=== PATIENT | male | born 1950 | race African-American/Black ===

== ENCOUNTER 2017-11-19 19:37 | Emergency (ER) | payer MEDICARE, MEDICAID ==
[~2017-11-19] VITALS: Ht 172.7 cm; Wt 124.7 kg
[~2017-11-19 19:37] MED LIST: CARTIA XT120 MG ORAL; FLOMAX0.4 MG ORAL; METFORMIN HCL1000 M1 ORAL; NEXIUM40 MG ORAL
[2017-11-19 20:00] VITALS: BP 120/76
[2017-11-19] MEDS ORDERED: Isovue-300 100ml vial INJ PRN (20:15)
[2017-11-19 20:47] LABS: APPEARANCE,URINE CLEAR; BASOPHILS % (AUTO) 0.9 % (0.0-2.0); BILIRUBIN, URINE NEGATIVE (NEGATIVE); EOSINOPHILS % (AUTO) 3.1 % (0.0-3.0); GLUCOSE, URINE (UA) NEGATIVE (NEGATIVE); HEMATOCRIT 43.4 % (42.0-52.0); KETONES,URINE NEGATIVE (NEGATIVE); LEUKOCYTE ESTERASE ,URINE NEGATIVE (NEGATIVE); LYMPHOCYTES % (AUTO) 37.7 % (20.0-45.0); MEAN CORPUSCULAR VOLUME 78 FL (80-99); MONOCYTES % (AUTO) 6.5 % (1.0-10.0); NEUTROPHILS % (AUTO) 51.8 % (45.0-75.0); NITRITE,URINE NEGATIVE (NEGATIVE); PH,URINE 5 (4.5-8.0); PLATELET COUNT 246 K/UL (150-450); PROTEIN,URINE NEGATIVE (NEGATIVE); RED BLOOD COUNT 5.59 M/UL (4.70-6.10); RED CELL DISTRIBUTION WIDTH 14.6 % (11.6-14.8); UROBILINOGEN,URINE NORMAL MG/DL (0.0-1.0); WHITE BLOOD COUNT 6.8 K/UL (4.8-10.8)
[2017-11-19 20:49] LABS: COLOR,URINE YELLOW
[2017-11-19 20:55] LABS: ANION GAP 6 mmol/L (5-15); BLOOD UREA NITROGEN 13 mg/dL (7-18); CALCIUM 9.1 MG/DL (8.5-10.1); CARBON DIOXIDE 30 MMOL/L (21-32); CHLORIDE 100 MMOL/L (98-107); CREATININE 1.1 MG/DL (0.55-1.30); POTASSIUM 3.5 MMOL/L (3.5-5.1); SODIUM 136 MMOL/L (136-145)
[2017-11-19 20:59] LABS: ALANINE AMINOTRANSFERASE 52 U/L (12-78); ALBUMIN 3.8 G/DL (3.4-5.0); ALBUMIN/GLOBULIN RATIO 0.8 (1.0-2.7); ALKALINE PHOSPHATASE 56 U/L (46-116); ASPARTATE AMINO TRANSFERASE 35 U/L (15-37); BILIRUBIN,TOTAL 0.3 MG/DL (0.2-1.0)
[2017-11-19] MEDS ORDERED: Lidocaine 2% Visc 15ml soln ORAL ONE (21:30)
--- NOTE | 2017-11-19 21:53 | Emergency Room Report ---
History of Present Illness General Chief Complaint: Abdominal Pain Source: Patient Present Illness HPI This patient states that he has had worsening abdominal pain over the past few days. He states he is also been burping a lot. He has a sour taste in the back of his throat. He has a burning sensation in his mid abdomen. He also has had difficulty having bowel movements. He is nauseated but denies vomiting. He denies dysuria or hematuria. He denies fever or chills. He denies chest pain or shortness of breath. He has no other complaints. Allergies: Coded Allergies: No Known Allergies (Unverified , 11/15/15) Patient History Past Medical History: see triage record, DM, HTN, GERD Social History: Denies: smoking, alcohol use, drug use Reviewed Nursing Documentation: PMH: Agreed; PSxH: Agreed Nursing Documentation-PMH Hx Hypertension: Yes Hx Diabetes: Yes Hx Gastrointestinal Problems: Yes - GERD Review of Systems All Other Systems: negative except mentioned in HPI Physical Exam Vital Signs Date Time Temp Pulse Resp B/P (MAP) Pulse Ox O2 Delivery O2 Flow Rate FiO2 11/19/17 19:53 98.9 98 18 112/71 98 Room Air 99.0 Sp02 EP Interpretation: reviewed, normal General Appearance: no apparent distress, alert, GCS 15, non-toxic, obese Head: normocephalic, atraumatic Eyes: bilateral eye normal inspection, bilateral eye PERRL ENT: hearing grossly normal, normal pharynx, no angioedema, normal voice Neck: full range of motion, supple/symm/no masses Respiratory: chest non-tender, lungs clear, normal breath sounds, no respiratory distress, no retraction, no accessory muscle use, speaking full sentences Cardiovascular #1: regular rate, rhythm, no edema Gastrointestinal: normal bowel sounds, soft, non-distended, no guarding, no rebound, tenderness - TTP in the epigastrium and mid abdomen Rectal: deferred Musculoskeletal: back normal, gait/station normal, normal range of motion, non- tender Neurologic: alert, oriented x3, responsive, motor strength/tone normal, sensory intact, speech normal Psychiatric: judgement/insight normal, memory normal, mood/affect normal, no suicidal/homicidal ideation Skin: normal color, no rash, warm/dry, well hydrated Medical Decision Making Diagnostic Impression: Primary Impression: GERD (gastroesophageal reflux disease) Additional Impression: Abdominal pain ER Course This patient presents with abdominal pain. I suspect the patient has GERD and constipation. However, the patient is tender to palpation on exam. Ultrasound of the right upper quadrant was unremarkable. Specifically there is no evidence of cholelithiasis or cholecystitis. Laboratory workup to include CBC, CMP and urinalysis are unremarkable. The patient is awaiting CT of the abdomen and pelvis. Anticipate that if the CT is negative that this patient can be treated for gastritis and constipation and be discharged home. The patient is turned over to Dr. Haynes. Laboratory Tests Test 11/19/17 20:08 White Blood Count 6.8 K/UL (4.8-10.8) Red Blood Count 5.59 M/UL (4.70-6.10) Hemoglobin 14.0 G/DL (14.2-18.0) L Hematocrit 43.4 % (42.0-52.0) Mean Corpuscular Volume 78 FL (80-99) L Mean Corpuscular Hemoglobin 25.1 PG (27.0-31.0) L Mean Corpuscular Hemoglobin Concent 32.3 G/DL (32.0-36.0) Red Cell Distribution Width 14.6 % (11.6-14.8) Platelet Count 246 K/UL (150-450) Mean Platelet Volume 6.4 FL (6.5-10.1) L Neutrophils (%) (Auto) 51.8 % (45.0-75.0) Lymphocytes (%) (Auto) 37.7 % (20.0-45.0) Monocytes (%) (Auto) 6.5 % (1.0-10.0) Eosinophils (%) (Auto) 3.1 % (0.0-3.0) H Basophils (%) (Auto) 0.9 % (0.0-2.0) Urine Color Yellow Urine Appearance Clear Urine pH 5 (4.5-8.0) Urine Specific [place] 1.020 (1.005-1.035) Urine Protein Negative (NEGATIVE) Urine Glucose (UA) Negative (NEGATIVE) Urine Ketones Negative (NEGATIVE) Urine Occult Blood Negative (NEGATIVE) Urine Nitrite Negative (NEGATIVE) Urine Bilirubin Negative (NEGATIVE) Urine Urobilinogen Normal MG/DL (0.0-1.0) Urine Leukocyte Esterase Negative (NEGATIVE) Sodium Level 136 MMOL/L (136-145) Potassium Level 3.5 MMOL/L (3.5-5.1) Chloride Level 100 MMOL/L (98-107) Carbon Dioxide Level 30 MMOL/L (21-32) Anion Gap 6 mmol/L (5-15) Blood Urea Nitrogen 13 mg/dL (7-18) Creatinine 1.1 MG/DL (0.55-1.30) Estimate Glomerular Filtration Rate > 60 mL/min (>60) Glucose Level 84 MG/DL (74-106) Calcium Level 9.1 MG/DL (8.5-10.1) Total Bilirubin 0.3 MG/DL (0.2-1.0) Aspartate Amino Transferase (AST) 35 U/L (15-37) Alanine Aminotransferase (ALT) 52 U/L (12-78) Alkaline Phosphatase 56 U/L (46-116) Troponin I 0.000 ng/mL (0.000-0.056) Total Protein 8.6 G/DL (6.4-8.2) H Albumin 3.8 G/DL (3.4-5.0) Globulin 4.8 g/dL Albumin/Globulin Ratio 0.8 (1.0-2.7) L Lipase 171 U/L (73-393) CT/MRI/US Diagnostic Results CT/MRI/US Diagnostic Results : Imaging Test Ordered: US RUQ Impression No acute findings. See official report. CT abd/pelvis: Impression: No acute process Broad-based umbilical hernia, no evidence of strangulation or obstruction Prominent prostate Diverticulosis. No evidence of diverticulitis Other findings as noted, including lumbar spondylosis, evidence of prior L4 and L5 laminectomies, right renal cyst Last Vital Signs Date Time Temp Pulse Resp B/P (MAP) Pulse Ox O2 Delivery O2 Flow Rate FiO2 11/19/17 20:00 98.5 75 18 120/76 98 Room Air 98.5 Disposition: HOME, SELF-CARE Condition: Improved Scripts Polyethylene Glycol 3350* (MIRALAX*) 17 Gm Powd.pack 17 GM ORAL DAILY for 30 Days, #30 PACKET Prov: Dipti Clark. DO 11/19/17 Docusate Sodium* (COLACE*) 100 Mg Capsule 100 MG ORAL DAILY, #30 CAP Prov: Dipti Clark. DO 11/19/17 Mag Hydrox/Al Hydrox/Simeth (MAALOX MAXIMUM STRENGTH SUSP) 355 Ml Oral.susp 10 ML PO Q6HR, #355 ML Prov: Dipti Clark DO 11/19/17 Simethicone* (SIMETHICONE*) 80 Mg Tab.chew 80 MG ORAL Q8H PRN for GAS PAIN, #20 TAB 0 Refills Prov: Dipti Clark DO 11/19/17 Referrals: [facility],REFERRING (PCP) Dipti Clark DO Nov 19, 2017 21:53
[2017-11-19] MEDS ORDERED: MIRALAX17 G2 ORAL (21:55)
[2017-11-19] MEDS ORDERED: SIMETHICONE80 MG ORAL (21:55)
[2017-11-19] MEDS ORDERED: MAALOX MAXIMUM355 M1 PO (21:55)
[2017-11-19] MEDS ORDERED: COLACE100 MG ORAL (21:55)
[2017-11-19 22:50] VITALS: BP 122/63
[2017-11-19 22:52] VITALS: BP 122/63
--- NOTE | 2017-11-20 09:09 | Diagnostic Imaging Report ---
Indication: Abdominal pain Technique: Mendoza-scale and duplex images of the upper abdomen were obtained Comparison: none Findings: Exam is limited due to patient body habitus Gallbladder is unremarkable, without stones, wall thickening, nor pericholecystic fluid. Sonographic Doe's sign is negative. Common bile duct measures 3 mm in diameter. No intrahepatic biliary ductal dilatation. Liver demonstrates normal echogenicity, no focal abnormality. Portal vein and hepatic veins are patent. Pancreas is incompletely visualized due to overlying bowel gas, visualized portions are unremarkable. Spleen is unremarkable. Left kidney measures 11.5 cm in length. Right kidney measures 11 cm length. Both kidneys demonstrate normal echogenicity. There is no hydronephrosis. Right kidney demonstrates a 28 mm cyst. Abdominal aorta is obscured by bowel gas . Impression: Limited exam, as described. Note nonvisualization of the abdominal aorta, suboptimal visualization of the pancreas Negative for gallstones or dilated ducts Incidental finding right renal cyst
--- NOTE | 2017-11-20 09:24 | Diagnostic Imaging Report ---
Clinical Indication: Abdominal pain x2 days Technique: No oral contrast utilized, per emergency room physician request IV administration nonionic contrast. Venous phase spiral acquisition obtained through the abdomen and pelvis. Multiplanar reconstructions were generated. Total dose length product 1095.6 mGycm. CTDIvol(s) 19.75 mGy. Dose reduction achieved using automated exposure control Comparison: none Findings: Normal appendix. There is colonic diverticulosis. No evidence of diverticulitis. No small bowel distention. There is a broad-based umbilical hernia contains bowel but there is no evidence of obstruction or strangulation. The distal esophagus, stomach, duodenum are unremarkable. No free or loculated intraperitoneal air or fluid is evident. The liver, gallbladder,, bile ducts, pancreas, spleen, adrenals, left kidney are all unremarkable. The right kidney demonstrates a 2.6 cm interpolar region cyst. No mesenteric or retroperitoneal mass or adenopathy. No pelvic mass or adenopathy. Prostate is slightly prominent. The included lung bases are clear. The bones demonstrate degenerative spondylosis changes. There is evidence of prior L4 and L5 laminectomies. There is bilateral L5 spondylolysis. No evidence of spondylolisthesis Impression: No acute process Broad-based umbilical hernia, no evidence of strangulation or obstruction Prominent prostate Diverticulosis. No evidence of diverticulitis Other findings as noted, including lumbar spondylosis, evidence of prior L4 and L5 laminectomies, right renal cyst This agrees with the preliminary interpretation provided overnight by [facility] teleradiology service. The CT scanner at [facility] is accredited by the [employer] and the scans are performed using protocols designed to limit radiation exposure to as low as reasonably achievable to attain images of sufficient resolution adequate for diagnostic evaluation.
== END 2017-11-19 22:55 | disposition home or self-care (01) ==
LOC: EMR 20:30
DX: K21.9 Gastro-esophageal reflux disease without esophagitis (principal); I10 Essential (primary) hypertension; E11.9 Type 2 diabetes mellitus without complications
CPT/HCPCS: 36415; 74177; 76700; 80053; 81003; 83690; 84484; 85025; 99285; Q9967; S0028

== ENCOUNTER 2017-12-01 08:50 | Emergency (ER) | payer MEDICARE, MEDICAID ==
[~2017-12-01] VITALS: Ht 172.7 cm; Wt 126.1 kg
[~2017-12-01 08:50] MED LIST changes: +COLACE100 MG ORAL; +MAALOX MAXIMUM355 M1 PO; +MIRALAX17 G2 ORAL; +SIMETHICONE80 MG ORAL
[2017-12-01 09:01] VITALS: BP 102/61
[2017-12-01] MEDS ORDERED: Lidocaine 2% Visc 15ml soln ORAL ONE (09:15)
--- NOTE | 2017-12-01 09:30 | Emergency Room Report ---
History of Present Illness General Chief Complaint: Sore Throat Source: Patient, Medical Record Present Illness HPI This patient states that he was seen previously by myself with the same symptoms. He states he has a burning sensation in his chest and has a lot of burping. He states that when he was seen here last time he was given the wrong prescription stating the prescriptions he was given was not his name. So he did not and up starting on the medications he was prescribed. He has exact same symptoms. He denies new symptoms. He has no other complaints. Allergies: Coded Allergies: No Known Allergies (Unverified , 11/15/15) Patient History Past Medical History: see triage record, DM, HTN, GERD Social History: Denies: smoking, alcohol use, drug use Reviewed Nursing Documentation: PMH: Agreed; PSxH: Agreed Nursing Documentation-PMH Past Medical History: No History, Except For Hx Hypertension: Yes Hx Diabetes: Yes Hx Gastrointestinal Problems: Yes - GERD Review of Systems All Other Systems: negative except mentioned in HPI Physical Exam Vital Signs Date Time Temp Pulse Resp B/P (MAP) Pulse Ox O2 Delivery O2 Flow Rate FiO2 12/01/17 08:53 98.5 105 18 102/61 95 Room Air 98.4 Sp02 EP Interpretation: reviewed, normal General Appearance: no apparent distress, alert, GCS 15, non-toxic Head: normocephalic, atraumatic Eyes: bilateral eye normal inspection, bilateral eye PERRL ENT: hearing grossly normal, normal pharynx, no angioedema, normal voice Neck: full range of motion, supple/symm/no masses Respiratory: chest non-tender, lungs clear, normal breath sounds, no respiratory distress, no retraction, no accessory muscle use, speaking full sentences Cardiovascular #1: regular rate, rhythm, no edema Gastrointestinal: normal bowel sounds, non tender, soft, non-distended, no guarding, no rebound Rectal: deferred Musculoskeletal: back normal, gait/station normal, normal range of motion, non- tender Neurologic: alert, oriented x3, responsive, motor strength/tone normal, sensory intact, speech normal Psychiatric: judgement/insight normal, memory normal, mood/affect normal, no suicidal/homicidal ideation Skin: normal color, no rash, warm/dry, well hydrated Lymphatic: no adenopathy Medical Decision Making Diagnostic Impression: Primary Impression: GERD (gastroesophageal reflux disease) Additional Impression: Esophagitis ER Course This patient has a clinical history and examination consistent with GERD and esophagitis. He had a full workup last week to include a right upper quadrant ultrasound, extensive laboratory workup to include CBC, CMP, cardiac enzymes and underwent a CT abdomen and pelvis for the same symptoms. This workup was unremarkable. I do not feel it is necessary to repeat any of these tests. The patient has not been able to take the prescribed medications and so continues to have symptoms. Unfortunately he failed to follow-up with his primary care physician despite being instructed to do so. I will re-prescribe him the same acid reflux medications as previously prescribed and instructed him to follow closely with his primary care physician as he may need a consultation to a tamale machine feeder. The patient indicated understanding and intention to do so. Last Vital Signs Date Time Temp Pulse Resp B/P (MAP) Pulse Ox O2 Delivery O2 Flow Rate FiO2 12/01/17 09:01 98.4 88 18 102/61 95 Room Air 98.4 Status: improved Disposition: HOME, SELF-CARE Condition: Improved Dipti Clark DO Dec 01, 2017 09:30
[2017-12-01] MEDS ORDERED: PEPCID AC20 M2 PO (10:02)
[2017-12-01] MEDS ORDERED: NEXIUM40 MG ORAL (10:02)
[2017-12-01] MEDS ORDERED: MAALOX MAXIMUM355 M1 PO (10:02)
[2017-12-01 10:11] VITALS: BP 102/61
== END 2017-12-01 10:13 | disposition home or self-care (01) ==
LOC: EMR 09:47
DX: K21.9 Gastro-esophageal reflux disease without esophagitis (principal); K20.9 Esophagitis, unspecified; E11.9 Type 2 diabetes mellitus without complications; I10 Essential (primary) hypertension
CPT/HCPCS: 99283

== ENCOUNTER 2017-12-22 18:08 | Emergency (ER) | payer MEDICARE, MEDICAID ==
[~2017-12-22] VITALS: Ht 172.7 cm; Wt 127.0 kg
[~2017-12-22 18:08] MED LIST changes: +PEPCID AC20 M2 PO
[2017-12-22 19:39] VITALS: BP 133/84
[2017-12-22 19:46] LABS: APPEARANCE,URINE CLEAR; BASOPHILS % (AUTO) 1.1 % (0.0-2.0); BILIRUBIN, URINE NEGATIVE (NEGATIVE); EOSINOPHILS % (AUTO) 2.8 % (0.0-3.0); GLUCOSE, URINE (UA) NEGATIVE (NEGATIVE); HEMATOCRIT 41.5 % (42.0-52.0); HEMOGLOBIN 14.4 G/DL (14.2-18.0); KETONES,URINE 1+ (NEGATIVE); LEUKOCYTE ESTERASE ,URINE 1+ (NEGATIVE); LYMPHOCYTES % (AUTO) 34.7 % (20.0-45.0); MEAN CORPUSCULAR VOLUME 76 FL (80-99); MONOCYTES % (AUTO) 9.2 % (1.0-10.0); NEUTROPHILS % (AUTO) 52.1 % (45.0-75.0); NITRITE,URINE NEGATIVE (NEGATIVE); PH,URINE 5 (4.5-8.0); PLATELET COUNT 250 K/UL (150-450); PROTEIN,URINE 1+ (NEGATIVE); RED BLOOD COUNT 5.47 M/UL (4.70-6.10); RED CELL DISTRIBUTION WIDTH 14.5 % (11.6-14.8); UROBILINOGEN,URINE 1 MG/DL (0.0-1.0); WHITE BLOOD COUNT 8.2 K/UL (4.8-10.8)
[2017-12-22 19:53] LABS: COLOR,URINE YELLOW
[2017-12-22 19:56] LABS: ANION GAP 10 mmol/L (5-15); BLOOD UREA NITROGEN 15 mg/dL (7-18); CALCIUM 9.8 MG/DL (8.5-10.1); CARBON DIOXIDE 28 MMOL/L (21-32); CHLORIDE 105 MMOL/L (98-107); CREATININE 1.1 MG/DL (0.55-1.30); POTASSIUM 3.6 MMOL/L (3.5-5.1); SODIUM 143 MMOL/L (136-145)
[2017-12-22 20:01] LABS: ALANINE AMINOTRANSFERASE 41 U/L (12-78); ALBUMIN 3.7 G/DL (3.4-5.0); ALBUMIN/GLOBULIN RATIO 0.8 (1.0-2.7); ALKALINE PHOSPHATASE 58 U/L (46-116); ASPARTATE AMINO TRANSFERASE 29 U/L (15-37); BILIRUBIN,TOTAL 0.3 MG/DL (0.2-1.0)
--- NOTE | 2017-12-22 20:34 | Emergency Room Report ---
History of Present Illness General Chief Complaint: Upper Respiratory Illness Source: Patient, Medical Record Present Illness HPI The patient states that he has had cough and congestion with clear to white sputum production over the past 2 days. He states he's also had some acid reflux and burning sensation for the same amount of time. He has a history of acid reflux. He denies fever or chills. He denies nausea or vomiting. He denies abdominal pain. He denies shortness of breath. He has no other complaints. Allergies: Coded Allergies: No Known Allergies (Unverified , 11/15/15) Patient History Past Medical History: see triage record, DM, HTN, CAD, GERD Social History: Denies: smoking, alcohol use, drug use Reviewed Nursing Documentation: PMH: Agreed; PSxH: Agreed Nursing Documentation-PMH Past Medical History: No History, Except For Hx Hypertension: Yes Hx COPD: Yes Hx Diabetes: Yes Hx Gastrointestinal Problems: Yes - GERD Review of Systems All Other Systems: negative except mentioned in HPI Physical Exam Vital Signs Date Time Temp Pulse Resp B/P (MAP) Pulse Ox O2 Delivery O2 Flow Rate FiO2 12/22/17 18:15 98.5 105 18 134/79 95 Room Air 98.4 Sp02 EP Interpretation: reviewed, normal General Appearance: no apparent distress, alert, GCS 15, non-toxic Head: normocephalic, atraumatic Eyes: bilateral eye normal inspection, bilateral eye PERRL ENT: hearing grossly normal, normal pharynx, no angioedema, normal voice Neck: full range of motion, supple/symm/no masses Respiratory: chest non-tender, lungs clear, normal breath sounds, no respiratory distress, no retraction, no accessory muscle use, speaking full sentences Cardiovascular #1: regular rate, rhythm, no edema Gastrointestinal: normal bowel sounds, non tender, soft, non-distended, no guarding, no rebound Rectal: deferred Musculoskeletal: back normal, gait/station normal, normal range of motion, non- tender Neurologic: alert, oriented x3, responsive, motor strength/tone normal, sensory intact, speech normal Psychiatric: judgement/insight normal, memory normal, mood/affect normal, no suicidal/homicidal ideation Skin: normal color, no rash, warm/dry, well hydrated Medical Decision Making Diagnostic Impression: Primary Impression: Upper respiratory infection ER Course This patient has a clinical presentation with upper respiratory tract infection. The evaluation was very reassuring with a normal lung exam, no respiratory distress, normal pulse oximetry. The patient's chest x-ray is unremarkable without any obvious pneumonia. Comparison chest x-ray shows no significant change. The patient also underwent EKG as a precaution and EKG is unchanged from a comparison on 11/16/2015. Given the patient's age and he has having a significant amount of sputum production, I will treat this patient with azithromycin for atypical pneumonia. He is not wheezing on exam and there is no evidence of congestive heart failure. Laboratory workup is reassuring. No emergency medical condition was identified. Patient is given close return precautions and follow-up instructions. Laboratory Tests Test 12/22/17 19:10 White Blood Count 8.2 K/UL (4.8-10.8) Red Blood Count 5.47 M/UL (4.70-6.10) Hemoglobin 14.4 G/DL (14.2-18.0) Hematocrit 41.5 % (42.0-52.0) L Mean Corpuscular Volume 76 FL (80-99) L Mean Corpuscular Hemoglobin 26.3 PG (27.0-31.0) L Mean Corpuscular Hemoglobin Concent 34.6 G/DL (32.0-36.0) Red Cell Distribution Width 14.5 % (11.6-14.8) Platelet Count 250 K/UL (150-450) Mean Platelet Volume 6.0 FL (6.5-10.1) L Neutrophils (%) (Auto) 52.1 % (45.0-75.0) Lymphocytes (%) (Auto) 34.7 % (20.0-45.0) Monocytes (%) (Auto) 9.2 % (1.0-10.0) Eosinophils (%) (Auto) 2.8 % (0.0-3.0) Basophils (%) (Auto) 1.1 % (0.0-2.0) Urine Color Yellow Urine Appearance Clear Urine pH 5 (4.5-8.0) Urine Specific [place] 1.015 (1.005-1.035) Urine Protein 1+ (NEGATIVE) H Urine Glucose (UA) Negative (NEGATIVE) Urine Ketones 1+ (NEGATIVE) H Urine Blood Negative (NEGATIVE) Urine Nitrite Negative (NEGATIVE) Urine Bilirubin Negative (NEGATIVE) Urine Urobilinogen 1 MG/DL (0.0-1.0) H Urine Leukocyte Esterase 1+ (NEGATIVE) H Urine RBC 0-2 /HPF (0 - 0) H Urine WBC 2-4 /HPF (0 - 0) Urine Squamous Epithelial Cells None /LPF (NONE/OCC) Urine Bacteria Occasional /HPF (NONE) Urine Mucus Few /LPF (NONE/OCC) H Sodium Level 143 MMOL/L (136-145) Potassium Level 3.6 MMOL/L (3.5-5.1) Chloride Level 105 MMOL/L (98-107) Carbon Dioxide Level 28 MMOL/L (21-32) Anion Gap 10 mmol/L (5-15) Blood Urea Nitrogen 15 mg/dL (7-18) Creatinine 1.1 MG/DL (0.55-1.30) Estimate Glomerular Filtration Rate > 60 mL/min (>60) Glucose Level 89 MG/DL (74-106) Calcium Level 9.8 MG/DL (8.5-10.1) Total Bilirubin 0.3 MG/DL (0.2-1.0) Aspartate Amino Transferase (AST) 29 U/L (15-37) Alanine Aminotransferase (ALT) 41 U/L (12-78) Alkaline Phosphatase 58 U/L (46-116) Troponin I 0.004 ng/mL (0.000-0.056) Total Protein 8.2 G/DL (6.4-8.2) Albumin 3.7 G/DL (3.4-5.0) Globulin 4.5 g/dL Albumin/Globulin Ratio 0.8 (1.0-2.7) L EKG Diagnostic Results Rate: normal Rhythm: NSR ST Segments: no acute changes Other Impression LAFB, LVH. Unchanged from comparison on 11/16/15 Rhythm Strip Diag. Results EP Interpretation: yes Rate: 90's Rhythm: NSR, no PVC's, no ectopy Chest X-Ray Diagnostic Results Chest X-Ray Diagnostic Results : Chest X-Ray Ordered: Yes # of Views/Limited/Complete: 1 View Indication: Other - cough Interpretation: no consolidation, no effusion, no pneumothorax, no acute cardiopulmonary disease Impression: No acute disease Electronically Signed by: Carlos Last Vital Signs Date Time Temp Pulse Resp B/P (MAP) Pulse Ox O2 Delivery O2 Flow Rate FiO2 12/22/17 19:39 89 23 133/84 98 Room Air 12/22/17 18:15 98.5 98.4 Status: improved Disposition: HOME, SELF-CARE Condition: Improved Patient Instructions: Upper Respiratory Infection, Adult Dipti Clark DO Dec 22, 2017 20:34
[2017-12-22] MEDS ORDERED: ZITHROMAX250 MG ORAL (20:36)
[2017-12-22] MEDS ORDERED: ROBITUSSIN NIG237 ML PO (20:36)
[2017-12-22 20:46] VITALS: BP 133/84
--- NOTE | 2017-12-23 11:10 | Diagnostic Imaging Report ---
Indication: Cough Comparison: 11/15/2015 A single view chest radiograph was obtained. Findings: Exam limited by rotation. Cardiomediastinal appearance is within normal limits for age. Pulmonary vascularity is appropriate. The diaphragmatic contour is smooth and costophrenic angles are sharp. No pleural effusions are identified. The bones are unremarkable. Impression: No acute findings
--- NOTE | 2017-12-23 16:45 | Cardiology Report ---
APPROVED REPORT EKG Measurement Heart [id number] Normal sinus rhythm Pulmonary disease pattern Left anterior fascicular block Left ventricular hypertrophy with QRS widening Cannot rule out Septal infarct, age undetermined T wave abnormality, consider lateral ischemia Abnormal ECG
== END 2017-12-22 20:50 | disposition home or self-care (01) ==
LOC: EMR 18:35
DX: J06.9 Acute upper respiratory infection, unspecified (principal); E11.9 Type 2 diabetes mellitus without complications; I10 Essential (primary) hypertension; J44.9 Chronic obstructive pulmonary disease, unspecified; K21.9 Gastro-esophageal reflux disease without esophagitis
CPT/HCPCS: 36415; 71045; 80053; 81003; 84484; 85025; 87040; 93005; 96360; 99284

== ENCOUNTER 2018-01-12 22:05 | Emergency (ER) | payer MEDICARE, MEDICAID ==
[~2018-01-12] VITALS: Ht 172.7 cm; Wt 132.4 kg
[~2018-01-12 22:05] MED LIST changes: +ROBITUSSIN NIG237 ML PO; +ZITHROMAX250 MG ORAL
[2018-01-12] MEDS ORDERED: Silver Nitrate Stick TOPIC ONE ×2 (22:46→23:00)
[2018-01-12 23:01] VITALS: BP 124/71
[2018-01-12] MEDS ORDERED: NORVASC10 MG ORAL (23:27)
--- NOTE | 2018-01-12 23:28 | Emergency Room Report ---
History of Present Illness General Chief Complaint: Nosebleed Source: Patient Present Illness HPI Is a 67-year-old male with a history of diabetes and reflux. He said he had a history of high blood pressure and the past but not taking medication. He presents with chief complaint of nosebleed has been on off for last 3 days. Mostly right side. No nausea no vomiting. Nocamping. Does have a cough. Complaining of right back pain from coughing. No fever or chills. No runny nose but no congestion. No other complaint. Allergies: Coded Allergies: No Known Allergies (Unverified , 11/15/15) Patient History Past Medical History: see triage record, old chart reviewed Past Surgical History: other Pertinent Family History: none Social History: Denies: smoking Immunizations: other Reviewed Nursing Documentation: PMH: Agreed; PSxH: Agreed Nursing Documentation-PMH Hx Hypertension: Yes Hx COPD: Yes Hx Diabetes: Yes Hx Gastrointestinal Problems: Yes - GERD Review of Systems Eye: Denies: eye pain, blurred vision ENT: Reports: nose pain - and bleeding; Denies: ear pain, nose congestion, throat swelling Respiratory: Denies: cough, shortness of breath Cardiovascular: Denies: chest pain, palpitations Gastrointestinal: Denies: abdominal pain, diarrhea, nausea, vomiting Musculoskeletal: Denies: back pain, joint pain Skin: Denies: rash Neurological: Denies: headache, numbness Endocrine: Denies: increased thirst, increased urine Hematologic/Lymphatic: Denies: easy bruising All Other Systems: negative except mentioned in HPI Physical Exam Vital Signs Date Time Temp Pulse Resp B/P (MAP) Pulse Ox O2 Delivery O2 Flow Rate FiO2 01/12/18 22:13 98.3 80 16 164/88 95 Room Air 98.2 vitals with high blood pressure Sp02 EP Interpretation: reviewed, normal General Appearance: well appearing, no apparent distress, alert Head: normocephalic, atraumatic Eyes: bilateral eye PERRL, bilateral eye EOMI ENT: hearing grossly normal, normal pharynx, other - dry blood in left nares. Oozing of blood on septum of right nose Neck: full range of motion, supple, no meningismus Respiratory: chest non-tender, lungs clear, normal breath sounds Cardiovascular #1: regular rate, rhythm, no murmur Gastrointestinal: normal bowel sounds, non tender, no mass, no organomegaly, no bruit, non-distended Musculoskeletal: back normal, gait/station normal, normal range of motion Psychiatric: mood/affect normal Skin: warm/dry Procedures Additional Procedure Procedure Narrative Procedure: Epistaxis control Indication: Epistaxis Description: I had the patient blow his nose. There is oozing of blood from the right side. I place a 5.5 cm Rhino Rocket patient tolerated procedure without a problem. Medical Decision Making Diagnostic Impression: Primary Impression: Epistaxis Additional Impressions: Hypertension Qualified Codes: I10 - Essential (primary) hypertension Cough in adult ER Course Patient with nosebleed. I place a Rhino Rocket that stop the bleeding. He did not want to be in. He wanted the out. No evidence of active bleeding was a removed it. We'll discharge home. We'll put him back on his blood pressure medication. his cough is probably secondary to URI Chest X-Ray Diagnostic Results Chest X-Ray Diagnostic Results : Chest X-Ray Ordered: Yes # of Views/Limited/Complete: 1 View Indication: Chest Pain EP Interpretation: Yes Interpretation: no consolidation, no effusion, no pneumothorax, no acute cardiopulmonary disease Impression: No acute disease Electronically Signed by: Avila Easley MD Last Vital Signs Date Time Temp Pulse Resp B/P (MAP) Pulse Ox O2 Delivery O2 Flow Rate FiO2 01/12/18 23:01 98.2 81 16 124/71 98 Room Air 98.2 Status: improved Disposition: HOME, SELF-CARE Condition: Stable Scripts Amlodipine Besylate (Norvasc) 10 Mg Tablet 10 MG ORAL DAILY, #30 TAB Prov: AVILA EASLEY M.D. 01/12/18 Referrals: [facility],REFERRING (PCP) Patient Instructions: Nosebleed, [id number] Additional Instructions: Follow-up with your doctor tomorrow as scheduled. Return if symptom worsen. Take your medication. Recheck on your blood pressure. AVILA EASLEY M.D. Jan 12, 2018 23:28
[2018-01-12 23:36] VITALS: BP 155/94
[2018-01-12 23:42] VITALS: BP 155/94
--- NOTE | 2018-01-13 08:35 | Diagnostic Imaging Report ---
Indication: Cough Technique: One view of the chest Comparison: 12/22/2017 Findings: Lungs and pleural spaces are clear. Heart size is normal. No significant interim change Impression: No acute process
== END 2018-01-12 23:44 | disposition home or self-care (01) ==
LOC: EMR 23:05
DX: R04.0 Epistaxis (principal); E11.9 Type 2 diabetes mellitus without complications; I10 Essential (primary) hypertension; K21.9 Gastro-esophageal reflux disease without esophagitis; J44.9 Chronic obstructive pulmonary disease, unspecified
CPT/HCPCS: 71045; 99283

== ENCOUNTER 2018-01-17 06:52 | Emergency (ER) | payer MEDICARE, MEDICAID ==
[~2018-01-17] VITALS: Ht 172.7 cm; Wt 127.5 kg
[~2018-01-17 06:52] MED LIST changes: +NORVASC10 MG ORAL
[2018-01-17] MEDS ORDERED: HYDROcodone/Acetamin 10/325 tab ORAL ONE (07:15)
--- NOTE | 2018-01-17 07:18 | Emergency Room Report ---
History of Present Illness General Chief Complaint: Abdominal Pain Source: Patient, Medical Record Present Illness HPI Patient presents with complaints of right upper quadrant abdominal pain Feels some radiation to the right upper shoulder area Patient however also points to the trapezius region for some discomfort Pain started for the past 2 days Denies any vomiting or diarrhea He feels that he has a dry throat Denies any diarrhea denies any lower abdominal pain Denies any fall or trauma Pain is a sharp pain 3 out of 10 Allergies: Coded Allergies: No Known Allergies (Unverified , 11/15/15) Patient History Past Medical History: see triage record Pertinent Family History: none Reviewed Nursing Documentation: PMH: Agreed; PSxH: Agreed Nursing Documentation-PMH Hx Hypertension: Yes Hx COPD: Yes Hx Diabetes: Yes Hx Gastrointestinal Problems: Yes - GERD Review of Systems All Other Systems: negative except mentioned in HPI Physical Exam Vital Signs Date Time Temp Pulse Resp B/P (MAP) Pulse Ox O2 Delivery O2 Flow Rate FiO2 01/17/18 06:59 98.1 84 15 136/77 94 Room Air 98.1 Sp02 EP Interpretation: reviewed, normal General Appearance: well appearing, no apparent distress Head: normocephalic, atraumatic Eyes: bilateral eye PERRL, bilateral eye EOMI ENT: hearing grossly normal, normal pharynx, TMs + canals normal, uvula midline Neck: full range of motion, supple, no meningismus, no bony tend Respiratory: lungs clear, normal breath sounds, no rhonchi, no respiratory distress, no retraction, no accessory muscle use Cardiovascular #1: normal peripheral pulses, regular rate, rhythm, no edema, no gallop, no JVD, no murmur Gastrointestinal: normal bowel sounds, non tender - However subjectively points to the right upper quadrant, soft, no mass, no organomegaly, non- distended, no guarding, no hernia, no pulsatile mass, no rebound Genitourinary: no CVA tenderness Musculoskeletal: normal inspection Neurologic: oriented x3, responsive, photo offset printer III-XII nml as tested, motor strength/ tone normal, sensory intact Psychiatric: mood/affect normal Skin: normal color, warm/dry, palpation normal, other - Nonspecific chronic diffuse dermatitis Lymphatic: normal inspection, no adenopathy Medical Decision Making Diagnostic Impression: Primary Impression: Abdominal pain ER Course With the history exam and presentation, multiple differentials considered, including but not limited to appendicitis, gastritis, cholecystitis, diverticulitis Given the patient's radiation to the right shoulder Cardiac and pulmonary pathology also considered Patient's blood work is at baseline levels EKG does not show any obvious ST elevations Patient has done better throughout his stay And at this time stable for initial conservative outpatient trial Labs Test 01/17/18 07:25 White Blood Count 7.0 K/UL (4.8-10.8) Red Blood Count 5.47 M/UL (4.70-6.10) Hemoglobin 14.0 G/DL (14.2-18.0) Hematocrit 40.8 % (42.0-52.0) Mean Corpuscular Volume 75 FL (80-99) Mean Corpuscular Hemoglobin 25.5 PG (27.0-31.0) Mean Corpuscular Hemoglobin Concent 34.2 G/DL (32.0-36.0) Red Cell Distribution Width 14.0 % (11.6-14.8) Platelet Count 242 K/UL (150-450) Mean Platelet Volume 6.1 FL (6.5-10.1) Neutrophils (%) (Auto) 50.8 % (45.0-75.0) Lymphocytes (%) (Auto) 36.5 % (20.0-45.0) Monocytes (%) (Auto) 9.5 % (1.0-10.0) Eosinophils (%) (Auto) 2.4 % (0.0-3.0) Basophils (%) (Auto) 0.9 % (0.0-2.0) Sodium Level 136 MMOL/L (136-145) Potassium Level 3.8 MMOL/L (3.5-5.1) Chloride Level 102 MMOL/L (98-107) Carbon Dioxide Level 29 MMOL/L (21-32) Anion Gap 5 mmol/L (5-15) Blood Urea Nitrogen 15 mg/dL (7-18) Creatinine 0.9 MG/DL (0.55-1.30) Estimat Glomerular Filtration Rate > 60 mL/min (>60) Glucose Level 98 MG/DL (74-106) Calcium Level 9.3 MG/DL (8.5-10.1) Total Bilirubin 0.5 MG/DL (0.2-1.0) Aspartate Amino Transf (AST/SGOT) 30 U/L (15-37) Alanine Aminotransferase (ALT/SGPT) 43 U/L (12-78) Alkaline Phosphatase 56 U/L (46-116) Total Protein 8.1 G/DL (6.4-8.2) Albumin 3.6 G/DL (3.4-5.0) Globulin 4.5 g/dL Albumin/Globulin Ratio 0.8 (1.0-2.7) Lipase 144 U/L (73-393) EKG Diagnostic Results Rate: normal Rhythm: NSR ST Segments: other - Nonspecific ST T-wave changes Rhythm Strip Diag. Results EP Interpretation: yes Rate: 77 Rhythm: NSR, no PVC's, no ectopy Chest X-Ray Diagnostic Results Chest X-Ray Diagnostic Results : Chest X-Ray Ordered: Yes # of Views/Limited/Complete: 1 View Indication: Chest Pain EP Interpretation: Yes Interpretation: no consolidation, no effusion, no pneumothorax Impression: No acute disease Electronically Signed by: Jazzmine Redding DO Last Vital Signs Date Time Temp Pulse Resp B/P (MAP) Pulse Ox O2 Delivery O2 Flow Rate FiO2 01/17/18 06:59 98.1 84 15 136/77 94 Room Air 98.1 Status: improved Disposition: HOME, SELF-CARE Condition: Improved Scripts Ondansetron* (ZOFRAN*) 4 Mg Tablet 4 MG ORAL Q8HR PRN for Nausea & Vomiting, #12 TAB Prov: Jazzmine Redding DO 01/17/18 Acetaminophen (Tylenol) 325 Mg Tablet 650 MG ORAL Q8HR PRN for Prn Pain/Headache/Temp > 101, #12 TAB 0 Refills Prov: Jazzmine Redding DO 01/17/18 Additional Instructions: Patient is provided with the discharge instructions notified to follow up with primary doctor in the next 2-3 days otherwise return to the er with any worsening symptoms. Please note that this report is being documented using [employer] technology. This can lead to erroneous entry secondary to incorrect interpretation by the dictating instrument. Jazzmine Redding DO Jan 17, 2018 07:18
[2018-01-17 07:44] LABS: BASOPHILS % (AUTO) 0.9 % (0.0-2.0); EOSINOPHILS % (AUTO) 2.4 % (0.0-3.0); HEMATOCRIT 40.8 % (42.0-52.0); LYMPHOCYTES % (AUTO) 36.5 % (20.0-45.0); MEAN CORPUSCULAR VOLUME 75 FL (80-99); MONOCYTES % (AUTO) 9.5 % (1.0-10.0); NEUTROPHILS % (AUTO) 50.8 % (45.0-75.0); PLATELET COUNT 242 K/UL (150-450); RED BLOOD COUNT 5.47 M/UL (4.70-6.10)
--- NOTE | 2018-01-17 08:14 | Diagnostic Imaging Report ---
PORTABLE AP UPRIGHT CXR: HISTORY: 67-year-old male with chest pain. COMPARISON: Portable CXR 01/12/2018; abdomen and pelvis CT with intravenous contrast 11/19/2017. FINDINGS: Compared to the prior portable CXR, and allowing for differences in technique, there has been no significant interval change. There is no confluent lung consolidation or evidence of acute pulmonary edema. Heart size is grossly normal and stable, allowing for technique. No abnormal mediastinal widening. No obvious pneumothorax or effusion. IMPRESSION: Grossly unremarkable and unchanged portable CXR.
[2018-01-17 08:18] LABS: ANION GAP 5 mmol/L (5-15); BLOOD UREA NITROGEN 15 mg/dL (7-18); CALCIUM 9.3 MG/DL (8.5-10.1); CARBON DIOXIDE 29 MMOL/L (21-32); CHLORIDE 102 MMOL/L (98-107); CREATININE 0.9 MG/DL (0.55-1.30); POTASSIUM 3.8 MMOL/L (3.5-5.1); SODIUM 136 MMOL/L (136-145)
[2018-01-17 08:24] LABS: ALANINE AMINOTRANSFERASE 43 U/L (12-78); ALBUMIN 3.6 G/DL (3.4-5.0); ALBUMIN/GLOBULIN RATIO 0.8 (1.0-2.7); ALKALINE PHOSPHATASE 56 U/L (46-116); ASPARTATE AMINO TRANSFERASE 30 U/L (15-37); BILIRUBIN,TOTAL 0.5 MG/DL (0.2-1.0)
[2018-01-17] MEDS ORDERED: Dicyclomine HCl 10mg/5ml oral soln ORAL ONE (09:00)
[2018-01-17] MEDS ORDERED: TYLENOL325 MG ORAL (09:20)
[2018-01-17] MEDS ORDERED: ZOFRAN4 M3 ORAL (09:20)
[2018-01-17 09:29] VITALS: BP 129/80
--- NOTE | 2018-01-17 14:18 | Cardiology Report ---
APPROVED REPORT EKG Measurement Heart [id number] Sinus rhythm with 1st degree AV block Left axis deviation Left ventricular hypertrophy with QRS widening Cannot rule out Septal infarct, age undetermined Abnormal ECG
== END 2018-01-17 09:29 | disposition home or self-care (01) ==
LOC: EMR 07:32
DX: I10 Essential (primary) hypertension (principal); E11.9 Type 2 diabetes mellitus without complications; J44.9 Chronic obstructive pulmonary disease, unspecified
CPT/HCPCS: 36415; 71045; 80053; 83690; 85025; 93005; 99284

== ENCOUNTER 2018-01-30 09:48 | Emergency (ER) | payer MEDICARE, MEDICAID ==
[~2018-01-30] VITALS: Ht 172.7 cm; Wt 127.0 kg
[~2018-01-30 09:48] MED LIST changes: +TYLENOL325 MG ORAL; +ZOFRAN4 M3 ORAL
[2018-01-30 10:00] VITALS: BP 119/79
--- NOTE | 2018-01-30 10:17 | Emergency Room Report ---
History of Present Illness General Chief Complaint: Abdominal Pain Source: Medical Record Present Illness HPI Mr. Leal is a 67-year-old male who drove the ER today with concerns for upper respiratory infection is congestion and constipation. He has mild symptoms. Has not had a good bowel movement several days. He has generalized mild pain. He is eating well. Has a history of CHF and diabetes. Gradual onset of symptoms Allergies: Coded Allergies: No Known Allergies (Unverified , 11/15/15) Patient History Past Medical History: see triage record Past Surgical History: other - Hernia surgery Reviewed Nursing Documentation: PMH: Agreed; PSxH: Agreed Nursing Documentation-PMH Past Medical History: No History, Except For Hx Hypertension: Yes Hx COPD: Yes Hx Diabetes: Yes Hx Gastrointestinal Problems: Yes - GERD Review of Systems Constitutional: Reports: malaise; Denies: fever Cardiovascular: Denies: chest pain Gastrointestinal: Reports: abdominal pain, constipation All Other Systems: negative except mentioned in HPI Physical Exam Vital Signs Date Time Temp Pulse Resp B/P (MAP) Pulse Ox O2 Delivery O2 Flow Rate FiO2 01/30/18 09:52 98.5 110 22 119/79 91 Room Air 98.4 Sp02 EP Interpretation: reviewed, normal General Appearance: no apparent distress, alert, GCS 15, non-toxic Head: normocephalic, atraumatic Eyes: bilateral eye normal inspection ENT: hearing grossly normal, normal pharynx, no angioedema, normal voice Neck: full range of motion, supple/symm/no masses Respiratory: chest non-tender, lungs clear, normal breath sounds, speaking full sentences Cardiovascular #1: regular rate, rhythm, no edema Gastrointestinal: normal bowel sounds, non tender, soft, non-distended, no guarding, no rebound Genitourinary: normal inspection Musculoskeletal: back normal, gait/station normal, normal range of motion, non- tender, calf tenderness Neurologic: alert, oriented x3, responsive, motor strength/tone normal, sensory intact, speech normal Psychiatric: judgement/insight normal, memory normal, mood/affect normal, no suicidal/homicidal ideation Skin: normal color, no rash, warm/dry, well hydrated Lymphatic: no adenopathy Medical Decision Making Diagnostic Impression: Primary Impression: Constipation Additional Impression: URI, acute ER Course Mr. Leal presents with URI symptoms and constipation. Do not suspect peritonitis or obstruction. Rx: loratadine, miralax Last Vital Signs Date Time Temp Pulse Resp B/P (MAP) Pulse Ox O2 Delivery O2 Flow Rate FiO2 01/30/18 10:00 98.4 22 119/79 91 Room Air 98.4 01/30/18 09:52 110 Disposition: HOME, SELF-CARE Condition: Stable Patient Instructions: Abdominal Pain, Adult Chasity Hartman MD Jan 30, 2018 10:17
[2018-01-30] MEDS ORDERED: LORATADINE10 M2 PO (10:19)
[2018-01-30] MEDS ORDERED: MIRALAX17 G2 ORAL (10:19)
== END 2018-01-30 10:34 | disposition home or self-care (01) ==
LOC: EMR 10:15
DX: K59.00 Constipation, unspecified (principal); J06.9 Acute upper respiratory infection, unspecified; E11.9 Type 2 diabetes mellitus without complications; I10 Essential (primary) hypertension; J44.9 Chronic obstructive pulmonary disease, unspecified; K21.9 Gastro-esophageal reflux disease without esophagitis
CPT/HCPCS: 99281

== ENCOUNTER 2018-05-11 02:28 | Emergency (ER) | payer MEDICARE, MEDICAID ==
[~2018-05-11] VITALS: Ht 172.7 cm; Wt 132.0 kg
[~2018-05-11 02:28] MED LIST changes: +LORATADINE10 M2 PO
[2018-05-11 02:45] VITALS: BP 145/97
--- NOTE | 2018-05-11 02:45 | NUR ---
ER Nurse Note: Pt came from home c/o cough and congestion with lower abdominal pain for two days with no fevers and no n/v/d. Pt lung sounds clear in all lobes. Pt on room air, no signs of distress. ERMD at pt side, lorraine continue to montior.
--- NOTE | 2018-05-11 02:45 | Emergency Room Report ---
History of Present Illness General Chief Complaint: Upper Respiratory Illness Source: Patient Present Illness HPI Patient presents with complaints of cough and nasal congestion Reports that symptoms have been ongoing for the past several days denies any chest pain denies any back or flank pain denies any swelling in the extremities denies any fevers or chills Patient reports the cough was also bothering him at nighttime and having difficulty sleeping Denies any change with position or exertion Denies any recent travel or pleurisy Allergies: Coded Allergies: No Known Allergies (Unverified , 05/11/18) Patient History Past Medical History: see triage record Pertinent Family History: none Reviewed Nursing Documentation: PMH: Agreed; PSxH: Agreed Nursing Documentation-PMH Hx Hypertension: Yes Hx COPD: Yes Hx Diabetes: Yes Hx Gastrointestinal Problems: Yes - GERD Review of Systems All Other Systems: negative except mentioned in HPI Physical Exam Vital Signs Date Time Temp Pulse Resp B/P (MAP) Pulse Ox O2 Delivery O2 Flow Rate FiO2 05/11/18 02:30 98.1 102 145/97 95 Room Air Sp02 EP Interpretation: reviewed, normal General Appearance: normal inspection - However morbidly obese, no apparent distress Head: normocephalic, atraumatic Eyes: bilateral eye PERRL, bilateral eye EOMI ENT: hearing grossly normal, normal pharynx, TMs + canals normal, uvula midline Neck: full range of motion, supple, no meningismus, no bony tend Respiratory: lungs clear, normal breath sounds, no rhonchi, no respiratory distress, no retraction, no accessory muscle use Cardiovascular #1: normal peripheral pulses, regular rate, rhythm, no edema, no gallop, no JVD, no murmur Gastrointestinal: normal bowel sounds, non tender, soft, no mass, no organomegaly, non-distended, no guarding, no hernia, no pulsatile mass, no rebound Genitourinary: no CVA tenderness Musculoskeletal: normal inspection Neurologic: oriented x3, responsive, open hearth door liner III-XII nml as tested, motor strength/ tone normal, sensory intact Psychiatric: mood/affect normal Skin: normal color, no rash, warm/dry, palpation normal Lymphatic: normal inspection, no adenopathy Medical Decision Making Diagnostic Impression: Primary Impression: Upper respiratory infection ER Course Patient has multiple differentials and consideration including but not limited to cardiac , Cardiopulmonary, vascular pathology Patient appears to have some nasal congestion We also have multiple x-rays on file And today the lung sounds are clear repeat imaging was not obtained Patient will attempt outpatient decongestions Return with any worse symptoms Last Vital Signs Date Time Temp Pulse Resp B/P (MAP) Pulse Ox O2 Delivery O2 Flow Rate FiO2 05/11/18 02:30 98.1 102 145/97 95 Room Air Status: unchanged Disposition: HOME, SELF-CARE Condition: Stable Additional Instructions: Patient is provided with the discharge instructions notified to follow up with primary doctor in the next 2-3 days otherwise return to the er with any worsening symptoms. Please note that this report is being documented using [employer] technology. This can lead to erroneous entry secondary to incorrect interpretation by the dictating instrument. Jazzmine Redding DO May 11, 2018 02:45
[2018-05-11] MEDS ORDERED: ROBITUSSIN NIG237 ML PO (02:46)
[2018-05-11] MEDS ORDERED: PSEUDOEPHEDRINE60 MG PO (02:46)
[2018-05-11 03:00] VITALS: BP 145/97
--- NOTE | 2018-05-11 03:00 | NUR ---
ER Nurse Note: Pt seen, treated, medically treated by WALDO. Discharge instructions given with repeat verbalization by pt. Instructed pt to follow up with primary care physcian within one week. Pt a&ox4, VSS, no signs of distress. ID band removed. Pt left with all belongings with steady gait via own transportation.
== END 2018-05-11 03:00 | disposition home or self-care (01) ==
LOC: EMR 02:50
DX: J06.9 Acute upper respiratory infection, unspecified (principal); I10 Essential (primary) hypertension; J44.9 Chronic obstructive pulmonary disease, unspecified; E11.9 Type 2 diabetes mellitus without complications; K21.9 Gastro-esophageal reflux disease without esophagitis
CPT/HCPCS: 99282

== ENCOUNTER 2018-06-13 04:56 | Emergency (ER) | payer MEDICARE, MEDICAID ==
[~2018-06-13] VITALS: Ht 172.7 cm; Wt 136.1 kg
[~2018-06-13 04:56] MED LIST changes: +PSEUDOEPHEDRINE60 MG PO
--- NOTE | 2018-06-13 05:19 | NUR ---
ED Nurse Note:Patient presents with complaints of abdominal pain and buring sensation in the throat.
--- NOTE | 2018-06-13 05:25 | Emergency Room Report ---
History of Present Illness General Chief Complaint: Abdominal Pain Source: Patient Present Illness HPI Patient presents with complaints of epigastric discomfort and belching burning sensation in to the mid lower esophageal region Denies any vomiting denies any diarrhea Discomfort started early this morning patient denies any back or flank pain Denies any fevers or chills Denies any dysuria or frequency Allergies: Coded Allergies: No Known Allergies (Unverified , 05/11/18) Patient History Past Medical History: see triage record Pertinent Family History: none Reviewed Nursing Documentation: PMH: Agreed; PSxH: Agreed Nursing Documentation-PMH Past Medical History: No History, Except For Hx Hypertension: Yes Hx COPD: Yes Hx Diabetes: Yes Hx Gastrointestinal Problems: Yes - GERD Review of Systems All Other Systems: negative except mentioned in HPI Physical Exam Vital Signs Date Time Temp Pulse Resp B/P (MAP) Pulse Ox O2 Delivery O2 Flow Rate FiO2 06/13/18 05:15 97.7 80 22 158/92 95 Room Air Sp02 EP Interpretation: reviewed, normal General Appearance: well appearing, no apparent distress Head: normocephalic, atraumatic Eyes: bilateral eye PERRL, bilateral eye EOMI ENT: hearing grossly normal, normal pharynx, TMs + canals normal, uvula midline Neck: full range of motion, supple, no meningismus, no bony tend Respiratory: lungs clear, normal breath sounds, no rhonchi, no respiratory distress, no retraction, no accessory muscle use Cardiovascular #1: normal peripheral pulses, regular rate, rhythm, no edema, no gallop, no JVD, no murmur Gastrointestinal: normal bowel sounds, non tender, soft, no mass, no organomegaly, non-distended, no guarding, no hernia, no pulsatile mass, no rebound Genitourinary: no CVA tenderness Musculoskeletal: normal inspection Neurologic: oriented x3, responsive, radio board operator III-XII nml as tested, motor strength/ tone normal, sensory intact Psychiatric: mood/affect normal Skin: normal color, no rash, warm/dry, palpation normal Lymphatic: normal inspection, no adenopathy Medical Decision Making Diagnostic Impression: Primary Impression: Abdominal pain ER Course With the history exam and presentation, multiple differentials considered, including but not limited to appendicitis, gastritis, cholecystitis, diverticulitis Patient has a soft benign abdominal exam We have blood work from October and December With lack of any obvious findings Accu-Chek today was at 92 Patient has similar presentation to previous with likely gastric pathology given the history and the findings a she was provided with medication here reports that he has not taking any medication at home and will have prescription with close outpatient follow-up Last Vital Signs Date Time Temp Pulse Resp B/P (MAP) Pulse Ox O2 Delivery O2 Flow Rate FiO2 06/13/18 05:15 97.7 80 22 158/92 95 Room Air Status: improved Disposition: HOME, SELF-CARE Condition: Improved Scripts Famotidine (PEPCID AC) 20 Mg Tablet 20 MG PO DAILY, #12 TAB Prov: Jazzmine Redding DO 06/13/18 Additional Instructions: Patient is provided with the discharge instructions notified to follow up with primary doctor in the next 2-3 days otherwise return to the er with any worsening symptoms. Please note that this report is being documented using [employer] technology. This can lead to erroneous entry secondary to incorrect interpretation by the dictating instrument. Jazzmine Redding DO Jun 13, 2018 05:25
[2018-06-13] MEDS ORDERED: PEPCID AC20 M2 PO (05:26)
[2018-06-13] MEDS ORDERED: Lidocaine 2% Visc 15ml soln ORAL ONE (05:30)
[2018-06-13] MEDS ORDERED: Dicyclomine HCl 10mg/5ml oral soln ORAL ONE (05:30)
[2018-06-13] MEDS ORDERED: Mylanta II UD 30ml ORAL ONE (05:30)
[2018-06-13 05:39] VITALS: BP 158/92
--- NOTE | 2018-06-13 05:59 | NUR ---
ED Nurse Note: patient tolerated medication well. Patient cleared for discharge by ERMD, no s/s of acut distress patient verbalized understanding of discharge information. patient ambulatory with steady gait, ID band removed. patient departed with personal belongings.
[2018-06-13 07:22] VITALS: BP 158/92
== END 2018-06-13 05:55 | disposition home or self-care (01) ==
LOC: EMR 05:28
DX: R10.9 Unspecified abdominal pain (principal); E11.9 Type 2 diabetes mellitus without complications; J44.9 Chronic obstructive pulmonary disease, unspecified; K21.9 Gastro-esophageal reflux disease without esophagitis; I10 Essential (primary) hypertension
CPT/HCPCS: 82962; 99283

== ENCOUNTER 2018-10-09 09:31 | Emergency (ER) | payer MEDICARE, MEDICAID ==
[~2018-10-09] VITALS: Ht 172.7 cm; Wt 132.0 kg
[2018-10-09 09:51] VITALS: BP 158/87
--- NOTE | 2018-10-09 10:01 | NUR ---
ED Nurse Note: PT FROM HOME CAME IN DUE TO THROAT PAIN AND PRODUCTIVE COUGHING X 1 WEEK. AFEBRILE 98.3 IN TRIAGE. PT IS AAO X4, AMBULATORY. NO SOB. VSS.
--- NOTE | 2018-10-09 10:49 | Diagnostic Imaging Report ---
INDICATION: Cough COMPARISON: Chest x-ray dated 01/17/18 FINDINGS: Single frontal view demonstrates a normal cardiomediastinal silhouette. Slight patchy opacity in the right pericardial region, can represent developing pneumonia, followup to resolution. No pleural effusions. The visualized osseous structures are within normal limits. IMPRESSION: Slight patchy opacity in the right pericardial region, can represent developing pneumonia, followup to resolution.
[2018-10-09] MEDS ORDERED: AMOXICILLIN500 MG ORAL (11:03)
[2018-10-09] MEDS ORDERED: ROBITUSSIN NIG237 ML PO (11:03)
[2018-10-09 11:08] VITALS: BP 148/70
--- NOTE | 2018-10-09 11:08 | NUR ---
ER DISCHARGE NOTE: Patient is cleared to be discharged per ERMD, pt is aox4, on room air, with stable vital signs. pt was given dc and prescription instructions, pt was able to verbalize understanding, pt id band removed. pt is able to ambulate with steady gait. pt took all belongings.
--- NOTE | 2018-10-09 14:27 | Emergency Room Report ---
History of Present Illness General Chief Complaint: Upper Respiratory Illness Source: Patient, Medical Record Present Illness HPI 67-year-old male presents ED for evaluation. Patient complaining of sore throat and cough x1 week. Per her cough is productive with greenish phlegm. Denies fevers or chills. Denies chest pain or shortness of breath. Denies sick contacts or recent travel. No other aggravating relieving factors. Denies any other associated symptoms Allergies: Coded Allergies: No Known Allergies (Unverified , 05/11/18) Patient History Past Medical History: DM, HTN, COPD, GERD Past Surgical History: none Pertinent Family History: none Social History: Denies: smoking, alcohol use, drug use Immunizations: UTD Reviewed Nursing Documentation: PMH: Agreed; PSxH: Agreed Nursing Documentation-PMH Hx Hypertension: Yes Hx COPD: Yes Hx Diabetes: Yes Hx Gastrointestinal Problems: Yes - GERD Review of Systems All Other Systems: negative except mentioned in HPI Physical Exam Vital Signs Date Time Temp Pulse Resp B/P (MAP) Pulse Ox O2 Delivery O2 Flow Rate FiO2 10/09/18 09:51 98.2 76 20 158/87 94 Room Air Sp02 EP Interpretation: reviewed, normal General Appearance: no apparent distress, alert, GCS 15, non-toxic, obese Head: normocephalic, atraumatic Eyes: bilateral eye normal inspection, bilateral eye PERRL ENT: hearing grossly normal, normal pharynx, no angioedema, normal voice Neck: full range of motion, supple/symm/no masses Respiratory: chest non-tender, crackles, speaking full sentences Cardiovascular #1: regular rate, rhythm, no edema Cardiovascular #2: 2+ carotid (R), 2+ carotid (L), 2+ radial (R), 2+ radial (L) , 2+ dorsalis pedis (R), 2+ dorsalis pedis (L) Gastrointestinal: normal bowel sounds, non tender, soft, non-distended, no guarding, no rebound Rectal: deferred Genitourinary: normal inspection, no CVA tenderness Musculoskeletal: back normal, gait/station normal, normal range of motion, non- tender Neurologic: alert, oriented x3, responsive, motor strength/tone normal, sensory intact, speech normal Psychiatric: judgement/insight normal, memory normal, mood/affect normal, no suicidal/homicidal ideation Reflexes: 3+ bicep (R), 3+ bicep (L), 3+ tricep (R), 3+ tricep (L), 3+ knee (R) , 3+ knee (L) Skin: normal color, no rash, warm/dry, well hydrated Lymphatic: no adenopathy Medical Decision Making Diagnostic Impression: Primary Impression: Pneumonia Qualified Codes: J18.9 - Pneumonia, unspecified organism ER Course Hospital Course 67-year-old male presents ED complaining of cough and sore throat x 1 week Differential diagnoses include: URI, pharyngitis, otitis media, asthma Clinical course Patient placed on stretcher. After initial history ago I ordered chest x-ray X-ray shows questionable right-sided infiltrate. Presentation consistent with pneumonia. Discussed findings with patient. Patient is afebrile, nontoxic- appearing. Good candidate for outpatient antibiotics. Safe for discharge with close outpatient follow-up. States he has a PMD Diagnosis - pneumonia Stable and discharged home with Rx amoxicillin. Instructed to followup with PMD. Return to ED if symptoms recur or worsen Last Vital Signs Date Time Temp Pulse Resp B/P (MAP) Pulse Ox O2 Delivery O2 Flow Rate FiO2 10/09/18 11:08 97.9 85 17 148/70 95 Room Air Status: improved Disposition: HOME, SELF-CARE Condition: Stable Scripts Amoxicillin* (AMOXIL*) 500 Mg Capsule 500 MG ORAL THREE TIMES A DAY, #21 CAP Prov: Tod Finney MD 10/09/18 Dextromethorphan Hb/Doxylamine (ROBITUSSIN NIGHTTIME COUGH DM) 237 Ml Liquid 10 ML PO QHS for 5 Days, ML Prov: Tod Finney MD 10/09/18 Referrals: NON PHYSICIAN (PCP) Sheron [facility] Patient Instructions: Community-Acquired Pneumonia, Adult, [id number] Tod Finney MD Oct 09, 2018 14:27
== END 2018-10-09 11:08 | disposition home or self-care (01) ==
LOC: EMR 10:42
DX: J18.9 Pneumonia, unspecified organism (principal); E66.9 Obesity, unspecified; E11.9 Type 2 diabetes mellitus without complications; I10 Essential (primary) hypertension; J44.9 Chronic obstructive pulmonary disease, unspecified; K21.9 Gastro-esophageal reflux disease without esophagitis; Z68.41 Body mass index [BMI] 40.0-44.9, adult
CPT/HCPCS: 71045; 99283

== ENCOUNTER 2018-11-20 05:52 | Emergency (ER) | payer MEDICARE, MEDICAID ==
[~2018-11-20] VITALS: Ht 172.7 cm; Wt 131.5 kg
[~2018-11-20 05:52] MED LIST changes: +AMOXICILLIN500 MG ORAL
[2018-11-20 05:55] VITALS: BP 172/97
--- NOTE | 2018-11-20 05:55 | NUR ---
ED Nurse Note: Patient presents with complaints of inability to urinate effectively since Thursday. Patient reports only a drizzle, and complaints of no efficient bowel movement since last week.
[2018-11-20] MEDS ORDERED: FUROSEMIDE40 MG ORAL (05:58)
[2018-11-20] MEDS ORDERED: Fleet's Enema 133ml RECTAL ONE (06:15)
--- NOTE | 2018-11-20 06:36 | Emergency Room Report ---
History of Present Illness General Chief Complaint: Male Urogenital Problems Source: Patient Present Illness HPI Patient is a 67-year-old male who presented after increased difficulty with urination. Patient reports having a prior history of prostate disease. He reports having similar symptoms in the past. He states he recently discontinued taking his Flomax. He denies any fever. He had not been vomiting. He denies any hematuria or bloody stools. He reports having increased hesitancy with urination. Allergies: Coded Allergies: No Known Allergies (Unverified , 05/11/18) Patient History Past Medical History: see triage record Reviewed Nursing Documentation: PMH: Agreed; PSxH: Agreed Nursing Documentation-PMH Past Medical History: No History, Except For Hx Hypertension: Yes Hx COPD: Yes Hx Diabetes: Yes Hx Gastrointestinal Problems: Yes - GERD Review of Systems All Other Systems: negative except mentioned in HPI Physical Exam Vital Signs Date Time Temp Pulse Resp B/P (MAP) Pulse Ox O2 Delivery O2 Flow Rate FiO2 11/20/18 05:55 98.8 89 18 172/97 93 Room Air General Appearance: no apparent distress, alert, GCS 15, obese, Chronically Ill Eyes: bilateral eye PERRL ENT: hearing grossly normal Respiratory: lungs clear Cardiovascular #1: no edema Gastrointestinal: normal inspection, non tender, soft Musculoskeletal: normal inspection Neurologic: normal inspection, alert, oriented x3, responsive Medical Decision Making Diagnostic Impression: Primary Impression: Prostatic hypertrophy ER Course Patient presented for hesitancy. Differential diagnosis included was not limited to appendicitis, urinary tract infection, urethritis, herpes among others.Patient's increased urinary hesitancy is likely related to discontinuing Flomax. Patient advised to reinitiate medications. Urinalysis showed no evidence of urinary infection. Patient appears to be stable for discharge and outpatient follow-up. Patient advised to return if worse. Labs Test 11/20/18 06:43 Urine Color Yellow Urine Appearance Clear Urine pH 5 (4.5-8.0) Urine Specific [place] 1.020 (1.005-1.035) Urine Protein 1+ (NEGATIVE) Urine Glucose (UA) Negative (NEGATIVE) Urine Ketones Negative (NEGATIVE) Urine Blood Negative (NEGATIVE) Urine Nitrite Negative (NEGATIVE) Urine Bilirubin Negative (NEGATIVE) Urine Urobilinogen Normal MG/DL (0.0-1.0) Urine Leukocyte Esterase Negative (NEGATIVE) Last Vital Signs Date Time Temp Pulse Resp B/P (MAP) Pulse Ox O2 Delivery O2 Flow Rate FiO2 11/20/18 05:55 98.8 79 18 172/97 (122) 93 Room Air Status: improved Disposition: HOME, SELF-CARE Condition: Stable Scripts Tamsulosin HCl (Flomax) 0.4 Mg Cap.er.24h 0.4 MG ORAL DAILY, #14 CAP Prov: Gabriel Haynes MD 11/20/18 Gabriel Haynes MD Nov 20, 2018 06:36
--- NOTE | 2018-11-20 06:38 | NUR ---
ED Nurse Note: Patient currently attempting to use the restroom.
[2018-11-20 06:52] LABS: APPEARANCE,URINE CLEAR; BILIRUBIN, URINE NEGATIVE (NEGATIVE); GLUCOSE, URINE (UA) NEGATIVE (NEGATIVE); KETONES,URINE NEGATIVE (NEGATIVE); LEUKOCYTE ESTERASE ,URINE NEGATIVE (NEGATIVE); NITRITE,URINE NEGATIVE (NEGATIVE); PH,URINE 5 (4.5-8.0); PROTEIN,URINE 1+ (NEGATIVE); UROBILINOGEN,URINE NORMAL MG/DL (0.0-1.0)
[2018-11-20 06:58] LABS: COLOR,URINE YELLOW
--- NOTE | 2018-11-20 07:00 | NUR ---
HAND-OFF: Report given to Susanna MCKEON.
[2018-11-20] MEDS ORDERED: FLOMAX0.4 MG ORAL (07:17)
[2018-11-20 07:24] VITALS: BP 159/97
--- NOTE | 2018-11-20 07:27 | NUR ---
ER DISCHARGE NOTE: pt urinated and ambulated with steady gait to and from restroom. pt states he drove himself here and will drive home. Patient is cleared to be discharged per ERMD, pt is aox4, on room air, with stable vital signs. pt was given dc and prescription instructions, pt was able to verbalize understanding, pt id band and iv site removed without complications. pt is able to ambulate with steady gait. pt took all belongings.
== END 2018-11-20 07:28 | disposition home or self-care (01) ==
LOC: EMR 06:09
DX: N40.0 Benign prostatic hyperplasia without lower urinary tract symptoms (principal); J44.9 Chronic obstructive pulmonary disease, unspecified; E11.9 Type 2 diabetes mellitus without complications; K21.9 Gastro-esophageal reflux disease without esophagitis; I10 Essential (primary) hypertension
CPT/HCPCS: 81003; 99284

== ENCOUNTER 2019-08-22 12:48 | Emergency (ER) | payer MEDICARE, MEDICAID ==
[~2019-08-22] VITALS: Ht 172.7 cm; Wt 127.0 kg
[~2019-08-22 12:48] MED LIST changes: +FUROSEMIDE40 MG ORAL
[2019-08-22] MEDS ORDERED: Omnipaque-300 100ml vial INJ PRN (13:00)
[2019-08-22 13:05] VITALS: BP 134/95
--- NOTE | 2019-08-22 13:05 | NUR ---
ED Nurse Note: Patient walked in to ED c/o urinary frequency after drinking a lot of soda. Denies pain upon urination. no fever. VSS.
--- NOTE | 2019-08-22 13:19 | NUR ---
ED Nurse Note: urine sent to lab
[2019-08-22 13:23] LABS: APPEARANCE,URINE CLEAR; BILIRUBIN, URINE NEGATIVE (NEGATIVE); GLUCOSE, URINE (UA) NEGATIVE (NEGATIVE); KETONES,URINE NEGATIVE (NEGATIVE); LEUKOCYTE ESTERASE ,URINE 1+ (NEGATIVE); NITRITE,URINE NEGATIVE (NEGATIVE); PH,URINE 5 (4.5-8.0); PROTEIN,URINE 2+ (NEGATIVE); UROBILINOGEN,URINE NORMAL MG/DL (0.0-1.0)
[2019-08-22 13:24] LABS: COLOR,URINE YELLOW
[2019-08-22 13:55] LABS: BASOPHILS % (AUTO) 0.8 % (0.0-2.0); EOSINOPHILS % (AUTO) 1.6 % (0.0-3.0); HEMATOCRIT 42.8 % (42.0-52.0); HEMOGLOBIN 14.3 G/DL (14.2-18.0); LYMPHOCYTES % (AUTO) 30.1 % (20.0-45.0); MEAN CORPUSCULAR VOLUME 75 FL (80-99); MONOCYTES % (AUTO) 7.6 % (1.0-10.0); NEUTROPHILS % (AUTO) 59.9 % (45.0-75.0); PLATELET COUNT 263 K/UL (150-450); RED BLOOD COUNT 5.73 M/UL (4.70-6.10); RED CELL DISTRIBUTION WIDTH 13.9 % (11.6-14.8); WHITE BLOOD COUNT 9.2 K/UL (4.8-10.8)
[2019-08-22 14:24] LABS: ANION GAP 12 mmol/L (5-15); BLOOD UREA NITROGEN 18 mg/dL (7-18); CALCIUM 8.9 MG/DL (8.5-10.1); CARBON DIOXIDE 28 MMOL/L (21-32); CHLORIDE 104 MMOL/L (98-107); POTASSIUM 3.8 MMOL/L (3.5-5.1); SODIUM 143 MMOL/L (136-145)
[2019-08-22 14:29] LABS: ALANINE AMINOTRANSFERASE 41 U/L (12-78); ALBUMIN 3.7 G/DL (3.4-5.0); ALBUMIN/GLOBULIN RATIO 0.8 (1.0-2.7); ALKALINE PHOSPHATASE 51 U/L (46-116); ASPARTATE AMINO TRANSFERASE 23 U/L (15-37); BILIRUBIN,TOTAL 0.2 MG/DL (0.2-1.0)
--- NOTE | 2019-08-22 14:41 | Emergency Room Report ---
History of Present Illness General Chief Complaint: Male Urogenital Problems Present Illness HPI 68-year-old male with history of type 2 diabetes and prostatic hypertrophy here complaining of 2 days of urinary frequency and urgency after he drank a lot of soda. Denies any hematuria or dysuria at this time he denies flank pain, diffuse abdominal pain, nausea vomiting, fever and chills. Also reports that he suffers from allergies and has been having more congestion however denies chest pain, cough, shortness of breath. Reports he has history of COPD however has not smoked any in many years. Patient in no distress, appears to be afebrile and oxygenation within normal limits. Allergies: Coded Allergies: No Known Allergies (Unverified , 05/11/18) COVID-19 Screening Contact w/high risk pt: No Recent Travel to affected area: No Experienced COVID-19 symptoms?: No Patient History Past Medical History: see triage record Past Surgical History: none Pertinent Family History: none Immunizations: UTD Reviewed Nursing Documentation: PMH: Agreed; PSxH: Agreed Nursing Documentation-PMH Past Medical History: No History, Except For Hx Hypertension: Yes Hx COPD: Yes Hx Diabetes: Yes Hx Gastrointestinal Problems: Yes - GERD Review of Systems All Other Systems: negative except mentioned in HPI Physical Exam Vital Signs Date Time Temp Pulse Resp B/P (MAP) Pulse Ox O2 Delivery O2 Flow Rate FiO2 08/22/19 12:57 98.8 89 20 134/95 (108) 97 Room Air Sp02 EP Interpretation: reviewed, normal General Appearance: no apparent distress, alert, GCS 15, non-toxic Head: normocephalic, atraumatic Eyes: bilateral eye normal inspection, bilateral eye PERRL ENT: hearing grossly normal, normal pharynx, no angioedema, normal voice Neck: full range of motion, supple/symm/no masses Respiratory: chest non-tender, lungs clear, normal breath sounds, no rhonchi, speaking full sentences Cardiovascular #1: regular rate, rhythm, no edema Gastrointestinal: normal bowel sounds, non tender, soft, no mass, no organomegaly, no peritonitis, non-distended, no guarding, no rebound Rectal: deferred Genitourinary: no CVA tenderness Musculoskeletal: back normal Neurologic: alert, motor strength/tone normal, oriented x3, sensory intact, responsive, speech normal Psychiatric: judgement/insight normal, memory normal, mood/affect normal, no suicidal/homicidal ideation Skin: no rash Lymphatic: no adenopathy Medical Decision Making PA Attestation Diagnosis and treatment plans were reviewed and discussed with my supervising physician Dr. Abel Diagnostic Impression: Primary Impression: UTI (urinary tract infection) Additional Impression: Allergic rhinitis ER Course 68-year-old male with history of type 2 diabetes and prostatic hypertrophy here complaining of 2 days of urinary frequency and urgency after he drank a lot of soda. Denies any hematuria or dysuria at this time he denies flank pain, diffuse abdominal pain, nausea vomiting, fever and chills. Also reports that he suffers from allergies and has been having more congestion however denies chest pain, cough, shortness of breath. Reports he has history of COPD however has not smoked any in many years. Patient in no distress, appears to be afebrile and oxygenation within normal limits. Ddx considered but are not limited to: UTI, pyelonephritis, urinary incontinence , prolapsed bladder Vital signs: are WNL, pt. is afebrile H&PE are most consistent with: UTI, allergic rhinitis ORDERS: UA, urine cx, CBC, CMP, chest x-ray, Keflex, Claritin ED INTERVENTIONS: None required at this time. DISCHARGE: At this time pt. is stable for d/c to home. Will provide printed patient care instructions, and any necessary prescriptions. Care plan and follow up instructions have been discussed with the patient prior to discharge. Patient take medication as directed, follow-up primary doctor, at this time no further evaluation needed regarding congestion is secondary to his allergies and has been ongoing for several months. If worsening symptom return to the emergency room. Chest X-Ray Diagnostic Results Chest X-Ray Diagnostic Results : Chest X-Ray Ordered: Yes # of Views/Limited/Complete: 1 View Indication: Other EP Interpretation: Yes PA Xray: Interpretation reviewed, by supervising MD, and agrees with findings. Interpretation: no consolidation, no effusion, no pneumothorax Impression: No acute disease Electronically Signed by: Shavon Diaz PA-C Last Vital Signs Date Time Temp Pulse Resp B/P (MAP) Pulse Ox O2 Delivery O2 Flow Rate FiO2 08/22/19 13:05 98.8 88 20 134/95 97 Room Air Disposition: HOME, SELF-CARE Condition: Stable Scripts Cephalexin* (KEFLEX*) 500 Mg Capsule 500 MG ORAL EVERY 12 HOURS for 7 Days, #14 CAP 0 Refills Prov: Shavon Rangel 08/22/19 Loratadine (CLARITIN) 10 Mg Tablet 10 MG ORAL DAILY, #20 TAB Prov: Shavon Rangel 08/22/19 Referrals: NON PHYSICIAN (PCP) Patient Instructions: Allergic Rhinitis, Urinary Tract Infection Additional Instructions: Take medication as directed, follow-up primary doctor, increase oral hydration, if worsening symptoms return to the emergency room Shavon Rangel Aug 22, 2019 14:41
[2019-08-22] MEDS ORDERED: CEPHALEXIN500 MG ORAL (14:42)
[2019-08-22] MEDS ORDERED: CLARITIN10 MG ORAL (14:42)
[2019-08-22 14:49] VITALS: BP 134/95
--- NOTE | 2019-08-22 14:49 | NUR ---
ED Nurse Note: Pt cleared by ERMD for discharge. DC instructions/prescription was given and explained to pt and verbalized understanding of teachings. All medical deviecs such as ID band and IV line removed. Pt is AAO x4, ambulatory and left with all personal belongings.
--- NOTE | 2019-08-22 15:08 | Diagnostic Imaging Report ---
Indication: Shortness of breath Technique: One view of the chest Comparison: 10/09/2018 Findings: Better inspiration currently. Body habitus limits evaluation. There is questionable mild interstitial prominence bilaterally. There is questionably some patchy right infrahilar infiltrate. The heart size is normal. The pleural spaces are clear Impression: Questionable bilateral interstitial disease and possible patchy right perihilar infiltrate, could indicate pneumonia if real. Correlate with clinical findings
== END 2019-08-22 14:49 | disposition home or self-care (01) ==
LOC: EMR 13:08
DX: N39.0 Urinary tract infection, site not specified (principal); J30.9 Allergic rhinitis, unspecified; E11.9 Type 2 diabetes mellitus without complications; I10 Essential (primary) hypertension; J44.9 Chronic obstructive pulmonary disease, unspecified; K21.9 Gastro-esophageal reflux disease without esophagitis; Z87.891 Personal history of nicotine dependence
CPT/HCPCS: 36415; 71045; 80053; 80307; 81003; 83690; 85025; 99283

== ENCOUNTER 2019-10-21 10:40 | Emergency (ER) | payer MEDICARE, MEDICAID ==
[~2019-10-21] VITALS: Ht 172.7 cm; Wt 127.0 kg
[~2019-10-21 10:40] MED LIST changes: +CEPHALEXIN500 MG ORAL; +CLARITIN10 MG ORAL
[2019-10-21 10:50] VITALS: BP 130/75
--- NOTE | 2019-10-21 10:50 | NUR ---
ED Nurse Note: Patient walked in toED from home c/o upper abdominal pain since last night. Denies nausea, vomiting, diarrhea. Reports feeling bloated and gassy. Pt also c/o bialteral hand numbness. Pt AAOx4, verbally responsive. No SOB. Afebrile. VSS. ERMD at bedside.
[2019-10-21] MEDS ORDERED: Omnipaque 350 100ml vial INJ PRN ×2 (11:00)
--- NOTE | 2019-10-21 11:02 | Emergency Room Report ---
History of Present Illness General Chief Complaint: Abdominal Pain Source: Patient (Rashid Abel MD) Present Illness HPI 68-year-old male history of diabetes hypertension presents with epigastric discomfort no aggravating relieving factors severity is mild, constant he feels gassy, no nausea no vomiting, he also endorses tingling in his bilateral hands, no chest pain no dyspnea on exertion no diarrhea no dysuria patient presents for evaluation and treatment (Rashid Abel MD) Allergies: Coded Allergies: No Known Allergies (Unverified , 05/11/18) COVID-19 Screening Contact w/high risk pt: No Recent Travel to affected area: No Experienced COVID-19 symptoms?: No 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 (Rashid Abel MD) Patient History Past Medical History: see triage record Reviewed Nursing Documentation: PMH: Agreed; PSxH: Agreed (Rashid Abel MD) Nursing Documentation-PMH Hx Hypertension: Yes Hx COPD: Yes Hx Diabetes: Yes Hx Gastrointestinal Problems: Yes - GERD (Rashid Abel MD) Review of Systems All Other Systems: negative except mentioned in HPI (Rashid Abel MD) Physical Exam Vital Signs Date Time Temp Pulse Resp B/P (MAP) Pulse Ox O2 Delivery O2 Flow Rate FiO2 10/21/19 10:46 98.4 78 20 130/75 (93) 96 Room Air Sp02 EP Interpretation: reviewed, normal General Appearance: well appearing, no apparent distress, alert Head: normocephalic, atraumatic Eyes: bilateral eye PERRL, bilateral eye EOMI ENT: uvula midline, moist mucus membranes Neck: supple, thyroid normal, supple/symm/no masses Respiratory: lungs clear, no respiratory distress, no retraction, no accessory muscle use Cardiovascular #1: normal peripheral pulses, regular rate, rhythm, no edema, no gallop, no murmur Gastrointestinal: soft, no guarding, no rebound, tenderness - Tenderness epigastrically Musculoskeletal: normal inspection Neurologic: alert, oriented x3 Psychiatric: mood/affect normal Skin: no rash, warm/dry (Rashid Abel MD) Medical Decision Making Diagnostic Impression: Primary Impression: Abdominal pain Qualified Codes: R10.13 - Epigastric pain Laboratory Tests Test 10/21/19 11:09 White Blood Count 6.5 K/UL (4.8-10.8) Red Blood Count 5.62 M/UL (4.70-6.10) Hemoglobin 14.3 G/DL (14.2-18.0) Hematocrit 45.0 % (42.0-52.0) Mean Corpuscular Volume 80 FL (80-99) Mean Corpuscular Hemoglobin 25.5 PG (27.0-31.0) L Mean Corpuscular Hemoglobin Concent 31.8 G/DL (32.0-36.0) L Red Cell Distribution Width 15.1 % (11.6-14.8) H Platelet Count 283 K/UL (150-450) Mean Platelet Volume 6.5 FL (6.5-10.1) Neutrophils (%) (Auto) 45.0 % (45.0-75.0) Lymphocytes (%) (Auto) 41.2 % (20.0-45.0) Monocytes (%) (Auto) 8.9 % (1.0-10.0) Eosinophils (%) (Auto) 3.7 % (0.0-3.0) H Basophils (%) (Auto) 1.3 % (0.0-2.0) Prothrombin Time 11.5 SEC (9.30-11.50) Prothrombin Time INR 1.0 (0.9-1.1) Activated Partial Thromboplast Time 26 SEC (23-33) Urine Color Pale yellow Urine Appearance Clear Urine pH 5 (4.5-8.0) Urine Specific [place] 1.020 (1.005-1.035) Urine Protein Negative (NEGATIVE) Urine Glucose (UA) Negative (NEGATIVE) Urine Ketones Negative (NEGATIVE) Urine Blood Negative (NEGATIVE) Urine Nitrite Negative (NEGATIVE) Urine Bilirubin Negative (NEGATIVE) Urine Urobilinogen Normal MG/DL (0.0-1.0) Urine Leukocyte Esterase Negative (NEGATIVE) Sodium Level 134 MMOL/L (136-145) L Potassium Level 3.8 MMOL/L (3.5-5.1) Chloride Level 99 MMOL/L (98-107) Carbon Dioxide Level 25 MMOL/L (21-32) Anion Gap 10 mmol/L (5-15) Blood Urea Nitrogen 12 mg/dL (7-18) Creatinine 0.9 MG/DL (0.55-1.30) Estimated Glomerular Filtration Rate > 60 mL/min (>60) Glucose Level 113 MG/DL (74-106) H Calcium Level 8.9 MG/DL (8.5-10.1) Total Bilirubin 0.3 MG/DL (0.2-1.0) Aspartate Amino Transferase (AST) 29 U/L (15-37) Alanine Aminotransferase (ALT) 29 U/L (12-78) Alkaline Phosphatase 46 U/L (46-116) Troponin I 0.004 ng/mL (0.000-0.056) Total Protein 7.9 G/DL (6.4-8.2) Albumin 3.5 G/DL (3.4-5.0) Globulin 4.4 g/dL Albumin/Globulin Ratio 0.8 (1.0-2.7) L Lipase 165 U/L (73-393) (Rashid Abel MD) ER Course Please see above note. Patient signed out to me to review CT scan. See results below. Patient feels better. Labs reviewed. Patient stable for outpatient observation and treatment. (Walker Garibay MD) EKG Diagnostic Results EKG Time: 11:03 EP Interpretation: NSR, rate 77, QTc 470, no acute ST elevations, left axis deviation (Rashid Abel MD) Chest X-Ray Diagnostic Results Chest X-Ray Diagnostic Results : Chest X-Ray Ordered: Yes # of Views/Limited/Complete: 1 View Indication: Chest Pain EP Interpretation: Yes Interpretation: no consolidation, no effusion, no pneumothorax, no acute cardiopulmonary disease Impression: No acute disease Electronically Signed by: Rashid Abel MD (Rashid Abel MD) CT/MRI/US Diagnostic Results CT/MRI/US Diagnostic Results : Imaging Test Ordered: Abdomen pelvis Impression NO EVIDENCE OF AORTIC DISSECTION. PLEURAL THICKENING POSTERIOR BILATERAL HEMITHORAX. DIVERTICULOSIS. RIGHT RENAL CYST. UMBILICAL HERNIA CONTAINING FAT AND SMALL BOWEL BUT NO SIGN OF INCARCERATION OR OBSTRUCTION. (Walker Garibay MD) Last Vital Signs Date Time Temp Pulse Resp B/P (MAP) Pulse Ox O2 Delivery O2 Flow Rate FiO2 10/21/19 10:50 78 20 Room Air 10/21/19 10:50 98.4 130/75 96 (Rashid Abel MD) Last Vital Signs Date Time Temp Pulse Resp B/P (MAP) Pulse Ox O2 Delivery O2 Flow Rate FiO2 10/21/19 15:39 98.2 71 16 130/72 97 Room Air Status: improved (Walker Garibay MD) Disposition: HOME, SELF-CARE Condition: Improved Scripts Acetaminophen (Tylenol) 325 Mg Tablet 650 MG ORAL Q6H PRN for Prn Pain/Headache/Temp > 101, #30 TAB 0 Refills Prov: Walker Garibay MD 10/21/19 Famotidine* (Pepcid 20mg tablet*) 20 Mg Tablet 20 MG ORAL DAILY, #30 TAB 0 Refills Prov: Walker Garibay MD 10/21/19 Rashid Abel MD Oct 21, 2019 11:02 Walker Garibay MD Oct 21, 2019 15:20
--- NOTE | 2019-10-21 11:09 | NUR ---
ED Nurse Note: IV line established. Blood and urine specimen collected and sent to lab.
--- NOTE | 2019-10-21 11:20 | NUR ---
ED Nurse Note: Xray at bedside.
[2019-10-21 11:22] LABS: APPEARANCE,URINE CLEAR; BILIRUBIN, URINE NEGATIVE (NEGATIVE); COLOR,URINE PALE YELLOW; GLUCOSE, URINE (UA) NEGATIVE (NEGATIVE); KETONES,URINE NEGATIVE (NEGATIVE); LEUKOCYTE ESTERASE ,URINE NEGATIVE (NEGATIVE); NITRITE,URINE NEGATIVE (NEGATIVE); PH,URINE 5 (4.5-8.0); PROTEIN,URINE NEGATIVE (NEGATIVE); UROBILINOGEN,URINE NORMAL MG/DL (0.0-1.0)
[2019-10-21 11:26] LABS: BASOPHILS % (AUTO) 1.3 % (0.0-2.0); EOSINOPHILS % (AUTO) 3.7 % (0.0-3.0); HEMOGLOBIN 14.3 G/DL (14.2-18.0); LYMPHOCYTES % (AUTO) 41.2 % (20.0-45.0); MEAN CORPUSCULAR VOLUME 80 FL (80-99); MONOCYTES % (AUTO) 8.9 % (1.0-10.0); PLATELET COUNT 283 K/UL (150-450); RED BLOOD COUNT 5.62 M/UL (4.70-6.10); RED CELL DISTRIBUTION WIDTH 15.1 % (11.6-14.8); WHITE BLOOD COUNT 6.5 K/UL (4.8-10.8)
[2019-10-21 11:48] LABS: ANION GAP 10 mmol/L (5-15); BLOOD UREA NITROGEN 12 mg/dL (7-18); CALCIUM 8.9 MG/DL (8.5-10.1); CARBON DIOXIDE 25 MMOL/L (21-32); CHLORIDE 99 MMOL/L (98-107); CREATININE 0.9 MG/DL (0.55-1.30); POTASSIUM 3.8 MMOL/L (3.5-5.1); SODIUM 134 MMOL/L (136-145)
[2019-10-21 11:51] LABS: ALANINE AMINOTRANSFERASE 29 U/L (12-78); ALBUMIN 3.5 G/DL (3.4-5.0); ALBUMIN/GLOBULIN RATIO 0.8 (1.0-2.7); ALKALINE PHOSPHATASE 46 U/L (46-116); ASPARTATE AMINO TRANSFERASE 29 U/L (15-37); BILIRUBIN,TOTAL 0.3 MG/DL (0.2-1.0)
--- NOTE | 2019-10-21 12:20 | NUR ---
ED Nurse Note: Pt was taken to CT.
--- NOTE | 2019-10-21 12:40 | NUR ---
ED Nurse Note: Pt returned from CT.
--- NOTE | 2019-10-21 13:53 | Diagnostic Imaging Report ---
Procedure: XRAY Chest 1v Reason for study: Shortness of breath Comparison films: None. FINDINGS: A single one view chest is obtained. Vascularity is normal. The lung duncan are clear bilaterally. Cardiac and mediastinal silhouette are within normal limits. CP angles are sharp. The bony thorax appear unremarkable. IMPRESSION: NO ACUTE CARDIOPULMONARY DISEASE.
--- NOTE | 2019-10-21 14:33 | Diagnostic Imaging Report ---
EXAM: CT CTA Chest Abd/Pel with contrast INDICATION: Chest and abdominal pain. Evaluate for dissection. COMPARISON: None TECHNIQUE: Axial images were obtained through the chest, abdomen and pelvis with intravenous contrast. Sagittal and coronal reformats are generated. All CT scans at this facility are performed using dose modulation techniques as appropriate to a performed exam including the following: automated exposure control with adjustment of the mA and/or kV according to patient size. RADIATION DOSE: CTDIvol: 132 mGy DLP: 1728.7 mGy-cm Dose information generated by the CT scanner is available in PACS. CHEST FINDINGS: There is no acute alveolar process. Minimal dependent atelectasis is noted. There is pleural thickening noted in the posterior aspect of both upper lungs. Cardiac and mediastinal structures are within normal limits. The aorta is nonaneurysmal and there is no intimal flap or dissection demonstrated. No mediastinal or axillary adenopathy. There is no effusion. ABDOMEN/PELVIS FINDINGS: The liver and spleen are homogeneous. Gallbladder is without sludge or stone and there is no wall thickening. The pancreas is unremarkable. Adrenals are normal in morphology. There is a right renal cyst. No hydronephrosis. Small bowel loops are nondistended. There is scattered diverticulosis without sign of acute diverticulitis. The appendix is normal. There is no free fluid or free air. No pathologic adenopathy demonstrated. Bladder is empty. The abdominal aorta is normal in caliber. No significant stenosis, intimal flap or dissection. There is a hernia at the umbilicus containing fat and small bowel loops but no sign of incarceration or obstruction. IMPRESSION: NO EVIDENCE OF AORTIC DISSECTION. PLEURAL THICKENING POSTERIOR BILATERAL HEMITHORAX. DIVERTICULOSIS. RIGHT RENAL CYST. UMBILICAL HERNIA CONTAINING FAT AND SMALL BOWEL BUT NO SIGN OF INCARCERATION OR OBSTRUCTION.
[2019-10-21] MEDS ORDERED: FAMOTIDINE20 MG ORAL (15:21)
[2019-10-21] MEDS ORDERED: TYLENOL325 MG ORAL (15:27)
[2019-10-21 15:39] VITALS: BP 130/72
--- NOTE | 2019-10-21 15:39 | NUR ---
ED Nurse Note: Pt cleared by ERMD for discharge. DC instructions/prescription was given and explained to pt and verbalized understanding of teachings. All medical deviecs such as ID band and IV line removed. Pt is AAO x4, ambulatory and left with all personal belongings. Pt took a bus.
== END 2019-10-21 15:39 | disposition home or self-care (01) ==
LOC: EMR 11:00
DX: R10.13 Epigastric pain (principal); E11.9 Type 2 diabetes mellitus without complications; I10 Essential (primary) hypertension; K21.9 Gastro-esophageal reflux disease without esophagitis; J44.9 Chronic obstructive pulmonary disease, unspecified; R20.2 Paresthesia of skin; K57.90 Diverticulosis of intestine, part unspecified, without perforation or abscess without bleeding; N28.1 Cyst of kidney, acquired; K42.9 Umbilical hernia without obstruction or gangrene
CPT/HCPCS: 36415; 71045; 71275; 74175; 80053; 81003; 83690; 84484; 85025; 85610; 85730; 93005; 96361; 96374; 96375; 99284; J2405; J7030; Q9967; S0028

== ENCOUNTER 2020-01-28 10:42 | Emergency (ER) | payer MEDICARE, MEDICAID ==
[~2020-01-28] VITALS: Ht 172.7 cm; Wt 132.0 kg
[~2020-01-28 10:42] MED LIST changes: +FAMOTIDINE20 MG ORAL; +ROBAXIN-750750 MG PO; +TYLENOL EXTRA500 MG ORAL
--- NOTE | 2020-01-28 10:56 | NUR ---
ED Nurse Note: Pt ambulated to ED from home d/t flu-like symptoms as manifested by stuffy nose and sneezes going on x 3 days. Pt is A&Ox4, calm and cooperative, VSS, breathing even and unlabored; afebrile on triage. Pt denies having cough. Pt was placed on bed and gown.
[2020-01-28 10:58] VITALS: BP 164/103
--- NOTE | 2020-01-28 10:58 | NUR ---
ED Nurse Note: ERMD at bedside.
[2020-01-28] MEDS ORDERED: Pseudoephedrine 30mg tab ORAL ONE (11:15)
[2020-01-28] MEDS ORDERED: Albuterol/Ipratropium 3ml neb HHN ONE (11:15)
[2020-01-28 11:20] LABS: BASOPHILS % (AUTO) 1.8 % (0.0-2.0); EOSINOPHILS % (AUTO) 6.4 % (0.0-3.0); HEMATOCRIT 41.7 % (42.0-52.0); HEMOGLOBIN 14.2 G/DL (14.2-18.0); LYMPHOCYTES % (AUTO) 42.3 % (20.0-45.0); MEAN CORPUSCULAR VOLUME 74 FL (80-99); NEUTROPHILS % (AUTO) 37.4 % (45.0-75.0); PLATELET COUNT 242 K/UL (150-450); RED BLOOD COUNT 5.66 M/UL (4.70-6.10); WHITE BLOOD COUNT 6.3 K/UL (4.8-10.8)
--- NOTE | 2020-01-28 11:48 | NUR ---
ED Nurse Note: x-ray at bedside.
[2020-01-28 11:50] LABS: ANION GAP 7 mmol/L (5-15); BLOOD UREA NITROGEN 14 mg/dL (7-18); CALCIUM 8.5 MG/DL (8.5-10.1); CARBON DIOXIDE 28 MMOL/L (21-32); CHLORIDE 104 MMOL/L (98-107); POTASSIUM 3.9 MMOL/L (3.5-5.1); SODIUM 139 MMOL/L (136-145)
[2020-01-28 12:00] LABS: ALANINE AMINOTRANSFERASE 31 U/L (12-78); ALBUMIN 3.6 G/DL (3.4-5.0); ALBUMIN/GLOBULIN RATIO 0.8 (1.0-2.7); ALKALINE PHOSPHATASE 47 U/L (46-116); ASPARTATE AMINO TRANSFERASE 27 U/L (15-37); BILIRUBIN,TOTAL 0.3 MG/DL (0.2-1.0); CREATINE KINASE 324 U/L (26-308)
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
[2020-01-28] MEDS ORDERED: Solu-MEDROL 125mg Inj IVP ONE (12:30)
--- NOTE | 2020-01-28 12:44 | Diagnostic Imaging Report ---
EXAM: XR Chest, 1 View CLINICAL HISTORY: DYSPNEA TECHNIQUE: Frontal view of the chest. COMPARISON: Chest radiograph on 10/21/2019 FINDINGS: Hardware: None. Lungs/pleura: Patchy opacities in right greater than left lower lungs. No pleural effusion or pneumothorax. Heart/mediastinum: Normal. No cardiomegaly. Soft tissues: Unremarkable. Bones: No acute fracture. Mild degenerative changes of the acromioclavicular joints and spine. Upper abdomen: Normal. IMPRESSION: Patchy opacities in right greater than left lower lungs, concerning for an infectious/inflammatory process versus atelectasis.
[2020-01-28] MEDS ORDERED: PROAIR HFA8.5 GM INH (12:58)
[2020-01-28] MEDS ORDERED: CHLOR-TRIMETON4 MG PO (12:58)
[2020-01-28] MEDS ORDERED: PREDNISONE20 MG ORAL (12:58)
[2020-01-28] MEDS ORDERED: ALBUTEROL2.5 MG/3 M HHN (12:58)
[2020-01-28 13:05] VITALS: BP 145/89
[2020-01-28 13:10] VITALS: BP 145/89
--- NOTE | 2020-01-28 13:10 | NUR ---
ER DISCHARGE NOTE: Patient is cleared to be discharged per ERMD, pt is aox4, on room air, with stable vital signs. pt was given dc and prescription instructions, pt was able to verbalize understanding, pt id band and iv site removed without complications. pt is able to ambulate with steady gait. pt took all belongings.
--- NOTE | 2020-01-31 17:09 | Cardiology Report ---
APPROVED REPORT EKG Measurement Heart [id number] <Conclusion> Normal sinus rhythm Left axis deviation Left ventricular hypertrophy with QRS widening Cannot rule out Septal infarct, age undetermined Abnormal ECG
== END 2020-01-28 13:17 | disposition home or self-care (01) ==
LOC: EMR 11:43
DX: J44.1 Chronic obstructive pulmonary disease with (acute) exacerbation (principal); D72.19 Other eosinophilia; E11.9 Type 2 diabetes mellitus without complications; K21.9 Gastro-esophageal reflux disease without esophagitis; I10 Essential (primary) hypertension; E66.3 Overweight; Z68.41 Body mass index [BMI] 40.0-44.9, adult
CPT/HCPCS: 36415; 71045; 80053; 82550; 83690; 83735; 83880; 84484; 85025; 85610; 85730; 86140; 93005; 94640; 96374; 99284; J2930; U0002; J7620

== ENCOUNTER 2020-02-02 08:03 | Emergency (ER) | payer MEDICARE, MEDICAID ==
[~2020-02-02] VITALS: Ht 172.7 cm; Wt 132.0 kg
[~2020-02-02 08:03] MED LIST changes: +ALBUTEROL2.5 MG/3 M HHN; +CHLOR-TRIMETON4 MG PO; +PREDNISONE20 MG ORAL; +PROAIR HFA8.5 GM INH
--- NOTE | 2020-02-02 08:07 | Emergency Room Report ---
History of Present Illness General Chief Complaint: To Be Triaged Source: Patient Present Illness HPI 69-year-old male with past medical history of umbilical hernia, inguinal hernia s/p repair,diverticulosis, CHF, COPD, HTN, GERD presents with inability to pass stool. Surgical history is pertinent for inguinal hernia x2. Last p.o. intake was this AM and tolerated without nausea. Last stool was 5 days ago. Last colonoscopy was 2 years ago and normal per patient. The patient's symptoms were gradual onset, severity was moderate, duration since 5 days. Quality: bloated. Passing flatus. Past medical history: Umbilical hernia, inguinal hernia, diverticulosis, renal cyst, CHF, COPD, HTN, GERD Past surgical history: Inguinal hernia x 2 ; lumbar surgery Smoking: Denies Alcohol use: Denies Drug use: Denies Review of systems: CONST: No fevers or chills, No night sweats PULMONARY: No productive cough, No shortness of breath CARDIAC: No chest pain, No palpitations GI: No vomiting, No diarrhea , No melena_or_BRBPR : No dysuria, No hematuria, No discharge NEURO: No new_focal_weakness_or_numbness, No confusion, No vision changes 14 point Review of Systems is otherwise negative except per HPI Physical Exam: GENERAL: Awake_alert_ nontoxic, no acute distress Spo2 97% on RA -normal; obese EYES: Extraocular muscles are intact. Conjunctivae clear. Lids without swelling ENT: External nose and ear normal_in_appearance. Oropharynx clear. Head_atraumatic, Moist_oral_mucosa NECK: No JVD. No meningismus. No thyromegaly. Supple. Trachea midline RESP: Normal respiratory effort. Symmetric rise. No stridor. Clear_to_auscultation_No_rales_No_wheezes CARDIAC: Regular rate and regular rhytm. No_significant pedal edema. ABDOMEN: Soft. Nondistended. Nontender_No_rebound_or_guarding. Obese. Palpable umbilical hernia. Reducible. No overlying warmth or cellulitis. Negative Doe sign. Negative obturator sign. Negative psoas sign. MSK: Normal muscle tone, without rigidity. Extremities without asymmetric deformity or swelling. SKIN: Warm and dry. No visible cyanosis or pallor NEUROLOGIC: Alert, oriented x3. Motor_and_sensation_grossly_intact. No truncal ataxia. Gait_normal Psych: Normal mood and affect, normal judgment and insight - COORDINATION OF CARE Case was discussed with: Patient Any labs and imaging that were ordered were interpreted as part of the medical decision making: I did review previous ER visit from September 2019. Patient had a CTA of the chest, abdomen, pelvis at the time that showed umbilical hernia, diverticulosis, constipation, no signs of obstruction. Patient symptoms today are worrisome for obstruction. CT, labs, imaging, EKG ordered. Medical Decision Making/Plan: Differential diagnosis includes ileus vs small bowel obstruction vs constipation vs incarcerated hernia vs volvulus vs gastroperesis DOUBT AAA, dissection, volvulus, toxic megacolon among others. Patient is well appearing with stable vital signs. Afebrile. Abdominal exam demonstrates reducible umbilical hernia without overlying warmth or cellulitis. Negative Doe sign. Negative obturator sign. Negative psoas sign. Labs show no abnormalities. Trop negative. Screening EKG shows LVH with strain pattern. Similar pattern seen on previous EKG. CT scan shows broad based umbilical hernia containing small bowel. No evidence of obstruction or strangulation. Also BPH and incidental R renal cyst. Umbilical hernia is easily reducible at bedside. The patients symptoms are not consistent with ACS (acute coronary syndrome), symptoms are not exertional, EKG without obvious ischemic change. Advised eating high-fiber diet. Will discharge with Zofran, Colace, Dulcolax, and simethicone. Patient is able to tolerate PO. Pertinent results reviewed with the patient. I educated the patient on the current treatment plan including the risks, benefits, and alternatives. I also discussed the extent and limitations of the current evaluation. The patient expressed understanding and agreement with plan. I recommended PMD follow-up within 1-2 days for referral to general surgeon for elective repair of umbilical hernia. Also advised that the patient return to the Emergency Department as soon as possible if they experience any new, persistent, or worsening symptoms. Allergies: Coded Allergies: No Known Allergies (Unverified , 05/11/18) COVID-19 Screening Contact w/high risk pt: No Recent Travel to affected area: No Experienced COVID-19 symptoms?: No Nursing Documentation-PMH Hx Hypertension: Yes Hx COPD: Yes Hx Diabetes: Yes Hx Gastrointestinal Problems: Yes - GERD Physical Exam Sp02 EP Interpretation: reviewed, normal Medical Decision Making Diagnostic Impression: Primary Impression: Abdominal pain Additional Impressions: Constipation Diverticulosis Umbilical hernia GERD (gastroesophageal reflux disease) Renal cyst, acquired, right EKG Diagnostic Results Troponin ordered: Yes When was troponin ordered?: Feb 02, 2020 EKG Time: 08:06 EP Interpretation: NSR, normal Rate: normal Rhythm: NSR ST Segments: no acute changes ASA given to the pt in ED: No - no acs PA Scribe Text 12-lead EKG (interpreted by me) Time: 817 Indication: Rhythm analysis Tracing visualized and Interpreted by me. Rhythm: Normal sinus rhythm Rate: 78 bpm QTc: 487 Morphology: No_significant_ST_elevations_or_depressions, No STEMI Impression: Sinus rhythm. PVCs. LVH. Strain pattern. CT/MRI/US Diagnostic Results CT/MRI/US Diagnostic Results : Impression CT abd pelvis Broad-based umbilical hernia containing small bowel. No evidence of obstruction or strangulation Somewhat prominent prostate Postsurgical changes of the lumbar spine Incidental finding right renal cyst Reevaluation Time: 09:24 Status: improved Disposition: HOME, SELF-CARE Admit Decision Time: 10:00 Condition: Stable Patient Instructions: Constipation, Adult, [id number], Hernia, Adult, [id number] Additional Instructions: Instructions for patient/sustainability project coordinator: Follow up with your physician in 1-2 days for referral to general surgeon for continued management of your umbilical hernia. Hydrate. Eat diet high in fiber and take stool softeners. Follow-up with your doctor sooner if your condition requires a more timely clinical reevaluation. Return to the emergency department immediately if you feel that your condition is worsening or if you have any new or concerning symptoms. Review your discharge instructions and take any prescriptions given as instructed. [facility] PROVIDES FREE OR LOW-COST HEALTH SERVICES TO PEOPLE WHO CAN SHOW PROOF THAT THEY LIVE IN [facility]. TO FIND MORE CLINICS PARTNERED WITH [facility] TO PROVIDE SERVICE, PLEASE CALL . Mari Jacobo D.O. Feb 02, 2020 08:07
[2020-02-02] MEDS ORDERED: Docusate 100mg cap ORAL ONE (08:15)
[2020-02-02] MEDS ORDERED: Bisacodyl EC 5mg tab ORAL ONE (08:15)
[2020-02-02 08:20] VITALS: BP 161/107
[2020-02-02] MEDS ORDERED: ONDANSETRON ODT4 MG BC (08:21)
[2020-02-02] MEDS ORDERED: COLACE100 MG ORAL (08:21)
[2020-02-02] MEDS ORDERED: BISACODYL5 MG ORAL (08:21)
[2020-02-02] MEDS ORDERED: SIMETHICONE80 M1 PO (08:21)
[2020-02-02] MEDS ORDERED: LINZESS145 MCG PO (08:26)
[2020-02-02] MEDS ORDERED: PREDNISONE20 MG ORAL (08:26)
--- NOTE | 2020-02-02 08:26 | NUR ---
ED Nurse Note: pt relates no bm x 3 days. denies n/v denies abd pain. pt a/ox4. pt to ct scan
--- NOTE | 2020-02-02 08:48 | NUR ---
ED Nurse Note: pt tolerates lab draw well after return from ct. meds given denies nausea
[2020-02-02 08:52] LABS: BASOPHILS % (AUTO) 0.6 % (0.0-2.0); EOSINOPHILS % (AUTO) 2.8 % (0.0-3.0); HEMATOCRIT 41.9 % (42.0-52.0); HEMOGLOBIN 14.2 G/DL (14.2-18.0); LYMPHOCYTES % (AUTO) 41.1 % (20.0-45.0); MEAN CORPUSCULAR VOLUME 75 FL (80-99); MONOCYTES % (AUTO) 8.2 % (1.0-10.0); NEUTROPHILS % (AUTO) 47.3 % (45.0-75.0); PLATELET COUNT 267 K/UL (150-450); RED BLOOD COUNT 5.58 M/UL (4.70-6.10); RED CELL DISTRIBUTION WIDTH 14.2 % (11.6-14.8); WHITE BLOOD COUNT 9.3 K/UL (4.8-10.8)
[2020-02-02 08:58] LABS: ANION GAP 9 mmol/L (5-15); BLOOD UREA NITROGEN 16 mg/dL (7-18); CALCIUM 8.8 MG/DL (8.5-10.1); CARBON DIOXIDE 29 MMOL/L (21-32); CHLORIDE 100 MMOL/L (98-107); SODIUM 138 MMOL/L (136-145)
[2020-02-02 09:03] LABS: ALANINE AMINOTRANSFERASE 31 U/L (12-78); ALBUMIN 3.5 G/DL (3.4-5.0); ALBUMIN/GLOBULIN RATIO 0.8 (1.0-2.7); ALKALINE PHOSPHATASE 46 U/L (46-116); ASPARTATE AMINO TRANSFERASE 21 U/L (15-37); BILIRUBIN,TOTAL 0.3 MG/DL (0.2-1.0)
--- NOTE | 2020-02-02 09:26 | Diagnostic Imaging Report ---
Indication: Constipation, abdominal pain Technique: Spiral acquisitions obtained through the abdomen and pelvis. No oral contrast utilized, per emergency room physician request No IV contrast utilized, per referring physician request.. Multiplanar reconstructions were generated. Total dose length product 1380 mGycm. CTDIvol(s) 24 mGy. Dose reduction achieved using automated exposure control Comparison: 10/21/[address] angiogram Findings: Lack of enteric contrast limits assessment of the GI tract. No evidence of diverticulosis or diverticulitis. No significant colonic stool burden noted. The appendix is normal. No small bowel distention. There is a broad-based umbilical hernia which contains some small bowel. This is nonobstructive and there is no evidence of strangulation. The distal esophagus, stomach, duodenum are unremarkable. Lack of IV contrast limits assessment of the solid organs. The liver, gallbladder, pancreas, spleen, bile ducts, adrenals, left kidney are unremarkable. The right kidney demonstrates an interpolar region cyst. No renal or ureteral calculi, hydronephrosis, or hydroureter. The prostate is somewhat prominent. The bladder is unremarkable. The included lung bases are clear. The bones demonstrate degenerative spondylosis changes as well as evidence of prior laminectomies at L4 and L5. No significant interim change Impression: Limited assessment of the GI tract, due to lack of enteric contrast administration Broad-based umbilical hernia containing small bowel. No evidence of obstruction or strangulation Somewhat prominent prostate Postsurgical changes of the lumbar spine Incidental finding right renal cyst The CT scanner at [facility] is accredited by the [employer] and the scans are performed using protocols designed to limit radiation exposure to as low as reasonably achievable to attain images of sufficient resolution adequate for diagnostic evaluation.
[2020-02-02 09:36] VITALS: BP 145/82
[2020-02-03] MEDS ORDERED: MIRALAX17 G2 ORAL (04:55)
--- NOTE | 2020-02-03 16:24 | Cardiology Report ---
APPROVED REPORT EKG Measurement Heart [id number] <Conclusion> Sinus rhythm with premature supraventricular complexes Left axis deviation Left ventricular hypertrophy with QRS widening Cannot rule out Septal infarct, age undetermined Abnormal ECG
== END 2020-02-02 09:36 | disposition home or self-care (01) ==
LOC: EMR 08:15
DX: K59.00 Constipation, unspecified (principal); R10.9 Unspecified abdominal pain; K57.90 Diverticulosis of intestine, part unspecified, without perforation or abscess without bleeding; K42.9 Umbilical hernia without obstruction or gangrene; K21.9 Gastro-esophageal reflux disease without esophagitis; N28.1 Cyst of kidney, acquired; I10 Essential (primary) hypertension; J44.9 Chronic obstructive pulmonary disease, unspecified; E11.9 Type 2 diabetes mellitus without complications; Z79.84 Long term (current) use of oral hypoglycemic drugs
CPT/HCPCS: 36415; 74176; 80053; 83690; 84484; 85025; 85610; 85730; 93005; 99284

== ENCOUNTER 2020-02-03 03:54 | Emergency (ER) | payer MEDICARE, MEDICAID ==
[~2020-02-03] VITALS: Ht 172.7 cm; Wt 132.0 kg
[~2020-02-03 03:54] MED LIST changes: +BISACODYL5 MG ORAL; +LINZESS145 MCG PO; +ONDANSETRON ODT4 MG BC; +SIMETHICONE80 M1 PO
[2020-02-03 04:15] VITALS: BP 206/105
--- NOTE | 2020-02-03 04:15 | NUR ---
Nurse Note: Pt arrived c/o abd pain, bloating since few days. Pt stated he has not had a bowel movement for few days. Pt stated major discomfort d/t constipation. Pt was seen in ED for consitpation in AM but has not had a BM. Pt stated no urge to defecte but feels pressure and discomfort.
[2020-02-03] MEDS ORDERED: Magnesium Citrate Liq Btl ORAL ONE (04:45)
[2020-02-03] MEDS ORDERED: MIRALAX17 G2 ORAL (04:55)
[2020-02-03 05:00] VITALS: BP 190/92
--- NOTE | 2020-02-03 05:00 | NUR ---
ER DISCHARGE NOTE: Patient is cleared to be discharged per ERMD. Pt is aox4, on room air, with stable vital signs. Pt was given dc and prescription instructions. Pt was able to verbalize understanding; instructed pt to follow up with primary care physican within one week. Pt id band removed. Pt is able to ambulate with steady gait. Pt took all belongings.
--- NOTE | 2020-02-03 05:14 | Emergency Room Report ---
History of Present Illness General Chief Complaint: Constipation Source: Patient Present Illness HPI Disclaimer: Please note that this report is being documented using DRAGON technology. This can lead to erroneous entry secondary to incorrect interpretation by the dictating instrument. HPI: 69-year-old male history of hypertension, COPD, CHF, presents from home due to constipation. Patient seen earlier yesterday for the same. He states he has not had a bowel movement in a week. He denies any nausea, vomiting, fevers, urinary complaints. No shortness of breath cough or chest pain. He states he feels "bloated ". He is passing gas. Patient was discharged with Colace and Dulcolax and took 1 dose but still states he is unable to have a bowel movement. He states he does not really have the sensation to go either. 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: No Patient History Reviewed Nursing Documentation: PMH: Agreed; PSxH: Agreed Nursing Documentation-PMH Hx Hypertension: Yes Hx COPD: Yes Hx Diabetes: Yes Hx Gastrointestinal Problems: Yes - GERD Review of Systems All Other Systems: negative except mentioned in HPI Physical Exam Vital Signs Date Time Temp Pulse Resp B/P (MAP) Pulse Ox O2 Delivery O2 Flow Rate FiO2 02/03/20 04:08 98.1 78 20 206/105 (138) 94 Room Air Sp02 EP Interpretation: reviewed, normal General Appearance: well appearing, no apparent distress Head: normocephalic, atraumatic Eyes: bilateral eye PERRL, bilateral eye EOMI ENT: hearing grossly normal, moist mucus membranes Neck: full range of motion, supple Respiratory: lungs clear, normal breath sounds, no rhonchi, no respiratory distress, no retraction, no wheezing Cardiovascular #1: normal peripheral pulses, regular rate, rhythm, no murmur Gastrointestinal: non tender, soft, non-distended, no guarding Neurologic: alert, oriented x3, no focal defects Skin: normal color, warm/dry Medical Decision Making Diagnostic Impression: Primary Impression: Constipation ER Course Patient presented with complaints of constipation. He was seen and worked up yesterday for the same. CT scan done showed no evidence of obstruction. Patient was discharged on Dulcolax and Colace. In the ER tonight I did give him 1 dose of magnesium citrate. I did discharge him with MiraLAX and explained how to titrate the medication. I do not believe he has an obstruction. His abdomen was soft and nontender. Blood pressure was elevated on arrival however he denied chest pain denied shortness of breath and currently it is time for him to take his home medications. He will be discharged home encouraged to continue his home medications as prescribed. Follow-up PMD. Return for any worsening symptoms. Last Vital Signs Date Time Temp Pulse Resp B/P (MAP) Pulse Ox O2 Delivery O2 Flow Rate FiO2 02/03/20 05:00 98.1 82 18 190/92 95 Room Air Disposition: HOME, SELF-CARE Condition: Stable Scripts Polyethylene Glycol 3350* (MIRALAX*) 17 Gm Powd.pack 17 GM ORAL DAILY PRN for Constipation, #30 PACKET Prov: Elio Pearson M.D. 02/03/20 Patient Instructions: Constipation, Adult Additional Instructions: If you do not have a bowel movement today after drinking the magnesium citrate you may take the MiraLAX provided. You may take 1 scoop as needed daily for constipation may increase to 2 or 3 scoops until your bowel movements are soft. If you use the MiraLAX do not take the Dulcolax or Colace. Patient is instructed to follow-up with her primary care doctor, primary care clinic or county clinic in 1 to 2 days. Patient instructed to return for any worsening symptoms or concerns. Elio Pearson M.D. Feb 03, 2020 05:14
== END 2020-02-03 05:00 | disposition home or self-care (01) ==
LOC: EMR 04:21
DX: K59.00 Constipation, unspecified (principal); E11.9 Type 2 diabetes mellitus without complications; I10 Essential (primary) hypertension; K21.9 Gastro-esophageal reflux disease without esophagitis; I11.0 Hypertensive heart disease with heart failure; J44.9 Chronic obstructive pulmonary disease, unspecified
CPT/HCPCS: 99282

== ENCOUNTER 2020-06-27 14:00 | Emergency (ER) | payer MEDICARE, MEDICAID ==
[~2020-06-27] VITALS: Ht 172.7 cm; Wt 132.0 kg
[2020-06-27 14:40] VITALS: BP 145/77
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
[2020-06-27] MEDS ORDERED: Cyclobenzaprine 10mg Tab ORAL ONE (15:15)
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
[2020-06-27] MEDS ORDERED: CYCLOBENZAPRINE10 MG ORAL (15:25)
[2020-06-27] MEDS ORDERED: LIDODERM700 M1 TOPIC (15:25)
== END 2020-06-27 15:35 | disposition home or self-care (01) ==
LOC: EMR 15:05
DX: S16.1XXA Strain of muscle, fascia and tendon at neck level, initial encounter (principal); S00.83XA Contusion of other part of head, initial encounter; I10 Essential (primary) hypertension; J44.9 Chronic obstructive pulmonary disease, unspecified; N40.0 Benign prostatic hyperplasia without lower urinary tract symptoms; E11.9 Type 2 diabetes mellitus without complications; V43.52XA Car driver injured in collision with other type car in traffic accident, initial encounter; Y92.411 Interstate highway as the place of occurrence of the external cause
CPT/HCPCS: 99282